=== PATIENT | female | born 1955 | race Caucasian/White ===

== ENCOUNTER 2023-10-16 12:52 | Outpatient (RCR) | payer MEDICARE, SELFPAY | END 2023-10-16 23:59 | disposition home or self-care (01) | LOC: ROT 12:52 | PROVIDERS: ATTENDING PHYSICIAN Physician Assistant | DX: R53.1 Weakness (principal); I69.328 Other speech and language deficits following cerebral infarction; Z73.6 Limitation of activities due to disability; I69.320 Aphasia following cerebral infarction; I69.390 Apraxia following cerebral infarction | CPT/HCPCS: 92507; 92523; 97110; 97140; 97167; 97530 ==

== ENCOUNTER 2023-11-12 07:22 | Outpatient (RCR) | payer MEDICARE, SELFPAY | END 2023-11-12 23:59 | disposition home or self-care (01) | LOC: ROT 07:22 | PROVIDERS: ATTENDING PHYSICIAN Physician Assistant | DX: I69.328 Other speech and language deficits following cerebral infarction (principal); I69.320 Aphasia following cerebral infarction; I69.390 Apraxia following cerebral infarction; R53.1 Weakness; Z73.6 Limitation of activities due to disability | CPT/HCPCS: 92507; 97110; 97112; 97140; 97530 ==

== ENCOUNTER 2023-11-26 12:47 | Outpatient (RCR) | payer MEDICARE, SELFPAY | END 2023-11-27 07:36 | disposition home or self-care (01) | LOC: ROT 12:47 | PROVIDERS: ATTENDING PHYSICIAN Physician Assistant | DX: I69.328 Other speech and language deficits following cerebral infarction (principal); R53.1 Weakness; Z73.6 Limitation of activities due to disability; I69.320 Aphasia following cerebral infarction; I69.390 Apraxia following cerebral infarction; M43.22 Fusion of spine, cervical region | CPT/HCPCS: 92507; 97014; 97110; 97112; 97140 ==

== ENCOUNTER → 2023-12-24 13:22 | Outpatient (REF) | payer MEDICARE, SELFPAY | LOC: RAD 13:22 | PROVIDERS: ATTENDING PHYSICIAN Specialist; FAMILY PHYSICIAN Physician Assistant | DX: N18.31 Chronic kidney disease, stage 3a (principal) | CPT/HCPCS: 76770 ==

== ENCOUNTER 2024-01-08 13:00 | Outpatient (RCR) | payer MEDICARE, SELFPAY | END 2024-01-08 23:59 | disposition home or self-care (01) | LOC: RPT 13:00 | PROVIDERS: ATTENDING PHYSICIAN Physical Medicine & Rehabilitation; FAMILY PHYSICIAN Physician Assistant | DX: M25.612 Stiffness of left shoulder, not elsewhere classified (principal); R29.3 Abnormal posture; M62.81 Muscle weakness (generalized); M25.512 Pain in left shoulder | CPT/HCPCS: 97010; 97110; 97140; 97162; 97530 ==

== ENCOUNTER 2024-02-15 12:55 | Outpatient (RCR) | payer MEDICARE, SELFPAY | END 2024-02-15 23:59 | disposition home or self-care (01) | LOC: RPT 12:55 | PROVIDERS: ATTENDING PHYSICIAN Physical Medicine & Rehabilitation; FAMILY PHYSICIAN Physician Assistant | DX: M25.612 Stiffness of left shoulder, not elsewhere classified (principal); M25.512 Pain in left shoulder; M62.81 Muscle weakness (generalized); R29.3 Abnormal posture | CPT/HCPCS: 97010; 97110; 97112; 97140; 97530 ==

== ENCOUNTER 2024-03-07 10:56 | Outpatient (RCR) | payer MEDICARE, SELFPAY | END 2024-03-07 14:08 | disposition home or self-care (01) | LOC: RPT 10:56 | PROVIDERS: ATTENDING PHYSICIAN Physical Medicine & Rehabilitation; FAMILY PHYSICIAN Physician Assistant | DX: M62.81 Muscle weakness (generalized) (principal); M25.512 Pain in left shoulder; R29.3 Abnormal posture | CPT/HCPCS: 97110; 97530 ==

== ENCOUNTER → 2024-06-27 18:20 | Outpatient (REF) | payer MEDICARE, SELFPAY | LOC: MRI 3T 18:20 | PROVIDERS: ATTENDING PHYSICIAN Psychiatry & Neurology Neurology; PRIMARYCARE PHYSICIAN Family Medicine | DX: I67.5 Moyamoya disease (principal) | CPT/HCPCS: 70553; A9575 ==

== ENCOUNTER → 2024-07-07 12:54 | Outpatient (REF) | payer MEDICARE, SELFPAY | LOC: PAVMRI 12:54 | PROVIDERS: ATTENDING PHYSICIAN Psychiatry & Neurology Neurology; FAMILY PHYSICIAN Family Medicine | DX: I67.5 Moyamoya disease (principal) | CPT/HCPCS: 70546; A9585 ==

== ENCOUNTER → 2024-07-09 14:27 | Outpatient (REF) | payer MEDICARE, SELFPAY | LOC: PAVMRI 14:27 | PROVIDERS: ATTENDING PHYSICIAN Psychiatry & Neurology Neurology; FAMILY PHYSICIAN Family Medicine | DX: I67.5 Moyamoya disease (principal) | CPT/HCPCS: 70549; A9585 ==

== ENCOUNTER → 2024-07-31 07:54 | Outpatient (REF) | payer MEDICARE, SELFPAY | LOC: WDC 07:54 | PROVIDERS: ATTENDING PHYSICIAN Physician Assistant | DX: Z12.31 Encounter for screening mammogram for malignant neoplasm of breast (principal) | CPT/HCPCS: 77063; 77067 ==

== ENCOUNTER 2024-08-29 13:31 | Inpatient (IN) | payer MEDICARE, SELFPAY ==
[2024-08-29] VITALS (11 sets, daily range): BP systolic 110–139; BP diastolic 46–64; BMI 26.5
--- NOTE | 2024-08-29 10:11 | ED.GENMED ---
History of Present Illness
General
Chief Complaint: Fainting/Passed Out
Source: patient, spouse and ambulance crew
Exam Limitations: none
Time Seen by Provider: 08/29/24 10:10
Nursing documentation reviewed up to this point in time: agreed with
History of Present Illness
History of Present Illness:
The patient is a 69-year-old female who arrives to the ED with paramedics on a prehospital stroke alert. According to her her , he got home at 9 AM this morning and found the patient sitting at the kitchen table. He noticed that she had
increased difficulty getting words out and was saying things that did not make sense. He reports that within minutes, she lost consciousness but he was able to catch her fall and lowered her down to the ground without her hurting herself. He
reports that he called 911 and she started to regain consciousness shortly after the paramedics arrived. At that time, she still seem to have increased difficulty with her speech. Paramedics report that shortly after they arrived, the patient had
another episode of losing consciousness. Patient does have a history of stroke in the past with expressive aphasia, however, the reports that it seems as though she has had slightly worsening symptoms than at her baseline. reports
he last saw her normal last night. He did not see her before 9 AM this morning. The patient denies headache, chest pain, shortness of breath and abdominal pain. Shortly after arrival, patient started to vomit in the ED. Patient denies vision
changes.
Past History
Past History
ED Past Medical History: CVA (right MCA stroke), HTN, IDDM, Hypothyroidism and Other (moyamoya, surgically remediated)
ED Past Surgical History: Other (neurosurgery craniotomy for moyamoya)
Social History
Tobacco: Non-smoker
Alcohol: None
Drug: None
Personal:
Living: with family
Employment: Employed
Family History
Family History: Other (reviewed and noncontributory)
Review of Systems
Review of Systems
Allergies reviewed?: Yes
Other source history: family
All Other Systems: ROS reviewed and negative except as documented in HPI and ROS
Constitutional: Reports no symptoms
EENT: Reports no symptoms
Respiratory: Reports cough
Cardiac: Reports syncope
ABD/GI: Reports nausea and vomiting
: Reports no symptoms
Musculoskeletal: Reports no symptoms
Skin: Reports no symptoms
Neurological: Reports no symptoms
Endocrine: Reports no symptoms
Hematologic/Lymphatic: Reports no symptoms
Psychiatric: Reports no symptoms
Phy Exam
Physical Exam
Physical Exam:
Physical Exam
General: On arrival, patient appears awake, alert, is vomiting and having some difficulty expressing words but is finally able to express some and they are understandable
Neck: supple. no meningeal signs. normal psoterior pharynx
Heart: Tachycardic
Lungs: no acute respiratory distress. clear bilaterally
Abdomen: Soft, nontender
Neuro: alert and orientedx3. Face appears symmetric. 5 out of 5 strength in all extremities. Extraocular muscles intact. Mild expressive aphasia.
Skin: no rash
Psychiatric: well kept. interactive and cooperative
Extremities: no edema. no calf tenderness. negative homans. good distal pulses
Course
Orders/Labs/Results
Orders:
Orders
08/29/24 10:10
Urinalysis Reflex To Culture Urgent
08/29/24 10:11
Electrocardiogram (*1) Urgent
Reason for Study: Syncope
CT HEAD STROKE ALERT W/o Cont Urgent
Comment:
Reason For Exam: aphasia
CT HEAD/NECK ANG STROKE ALERT Urgent
Comment:
Reason For Exam: aphasia
EKG- Treatment ONCE
08/29/24 10:33
Metoclopramide [Reglan] 10 mg IV NOW STA
08/29/24 10:39
Complete Blood Count/With Diff Urgent
Comprehensive Metabolic Panel Urgent
Lipase Urgent
Troponin I Urgent
08/29/24 10:48
COVID-19 Antigen Urgent
Source: Nasal Swab
Influenza A+B Rapid Molecular Urgent
EDITH Source: Nasal Swab
Specimen Description:
08/29/24 11:07
CXR Port [CR Chest Portable - 1 View] Urgent
Comment:
Reason For Exam: cough, vomiting, stroke
Reason Study Needs to be Portable: Patient Unstable
08/29/24 11:22
0.9% Sodium Chloride 1000 ml [Nss] 1,000 ml IV BOLUS
Abnormal Lab Results
08/29/24
10:39
RBC 3.32 L 10^6/uL
(4.20-5.40)
Hgb 10.8 L g/dL
(12.0-16.0)
Hct 31.7 L %
(37.0-47.0)
MCH 32.5 H pg
(27.0-31.0)
Absolute Monos (auto) 1.0 H 10^3/uL
(0.1-0.6)
Absolute Eos (auto) 0.8 H 10^3/uL
(0-0.7)
Monocytes % 10.0 H %
(1.7-9.3)
Eosinophils % 8.2 H %
(0-6)
Sodium 130 L mmol/L
(135-145)
Chloride 96 L mmol/L
(98-107)
BUN 29 H mg/dl
(7-17)
Creatinine 1.3 H mg/dL
(0.6-1.0)
Glucose 180 H mg/dl
(70-99)
08/29/24 10:39
08/29/24 10:39
Vital Signs
Initial and Last Documented VS:
Initial Vital Signs
Temp Pulse Resp BP Pulse Ox
97.9 F 103 22 122/58 98
08/29/24 10:26 08/29/24 10:26 08/29/24 10:26 08/29/24 10:26 08/29/24 10:26
Last Documented Vital Signs
Temp Pulse Resp BP Pulse Ox
98.8 F 109 20 121/55 97
08/29/24 11:16 08/29/24 11:00 08/29/24 11:00 08/29/24 11:00 08/29/24 11:00
MDM/Problems Addressed
Differential Diagnosis Includes:
Acute CVA causing expressive aphasia, intracranial hemorrhage, cardiac syncope, PE
MDM/Problems Addressed:
Patient arrives after 2 episodes of syncope and reported increased expressive aphasia, as well as vomiting
Chronic conditions affecting care:
CVA
Acute Exacerbation and/or Progression of Chronic Illness:
Patient may have acute exacerbation of chronic CVA symptoms
Acute Exacerbation and/or Progression of Chronic Illness: Other (CVA)
*Radiology
Radiology exam reviewed: preliminary read by ED provider (Chest x-ray read by me. No acute disease) and radiology read reviewed
*Pulse Oximetry
Patient hypoxic: no
*EKG
Interpreted by ED Provider?: Yes
Interpretation: abnormal
Comparison EKG: changes noted
Rate: tachycardiac
Rhythm: sinus
[place]: left axis deviation
Interval: normal interval
QRS Pattern: normal QRS
Ischemia: non-specific ST changes
*Fiscal Technician Interpretation
Rate: tachycardiac
Interpretation: abnormal
Rhythm: sinus
*Critical Care Note
Total Time (30-74mins, 75-104mins- exclusive of procedures): 35 min
comment:
35 minutes of critical care given to patient including reviewing her admission from 2021, speaking to neurology, to her , reviewing her CT with radiology, reviewing her lab work and EKG
Data Reviewed
Review of Other/Old Records Reveals: Discharge Summary (Hospitalist discharge summary reviewed from 2021 when patient was admitted for stroke, acute kidney damage and COVID-positive)
Source: patient and spouse
Update Note
Update Note:
There been no cardiac dysrhythmias in the ED. Patient's cause of syncope is unclear.
Patient is not a candidate for TNK given that her aphasia similar to her baseline and it was associated with syncopal episode.
ED Attending Note
-
Portions of this chart may have been created with voice recognition software.� Occasional wrong word or��sound alike� substitutions may have occurred due to the inherent limitations of voice recognition software.
Discharge Plan
Departure
Patient Disposition: Admit
Date of Disposition: 08/29/24
Time of Disposition: 11:25
Admit to: Telemetry
Presentation/result/management discussed w/ accepting MD/DO: Hospitalist
Patient with high blood pressure during this ER visit?: No
Condition: Fair
Discharge Problem:
Recurrent syncope, Acute vomiting, Acute on chronic expressive aphasia
Prescriptions:
No Action
cholecalciferol (vitamin D3) 1,000 UNITS tablet
1,000 units PO DAILY
amlodipine 10 mg tablet
10 mg PO DAILY
levothyroxine 112 mcg tablet
112 mcg PO DAILY@0700
olmesartan-hydrochlorothiazide 20-12.5 mg tablet
1 tab PO DAILY
Janumet 50-500 mg tablet
1 tab PO QPM
Trulicity 0.75 mg/0.5 mL pen injector
0.75 mg SC SA
atorvastatin 80 MG tablet
80 mg PO DAILY@2000
hydralazine 25 MG tablet
50 mg PO BID
aspirin 81 MG tablet,delayed release (DR/EC)
81 mg PO DAILY
Referrals:
Cruz Mariscal MD [Family Provider] -
Interventions
Interventions:
*Risk Screen - Suicide Last Done: 08/29/24 10:43
*Neglect/Abuse Screening Last Done: 08/29/24 10:43
ED- Fall Risk Assessment Last Done: 08/29/24 10:43
*ED COVID-19 Vaccine History Last Done: 08/29/24 10:16
ED- Cardiac Assessment Last Done: 08/29/24 10:27
ED- Neurological Assessment Last Done: 08/29/24 10:51
ED- Pulmonary Assessment Last Done: 08/29/24 10:27
ED Swallowing Screen Last Done: 08/29/24 11:41
Discharge Date and Time
Print Language: TRINIDADIAN
[2024-08-29] MEDS: REGLAN 10 MG IV (10:40)
[2024-08-29 10:50] LABS: % Basophils 1.5 % (0-2); % Eosinophils 8.2 % (0-6); % Immature Granulocytes 0.2 % (0-0.5); % Lymphocytes 27.1 % (20.5-51.1); Absolute Basophils 0.2 10^3/uL (0-0.2); Absolute Eosinophils 0.8 10^3/uL (0-0.7); Absolute Lymphocytes 2.7 10^3/uL (1.2-3.4); Absolute Neutrophils 5.2 10^3/uL (1.4-6.5); Hematocrit 31.7 % (37.0-47.0); Hemoglobin 10.8 g/dL (12.0-16.0); Mean Corp Hgb Conc. 34.1 g/dL (33.0-37.0); Mean Corpuscular Hgb 32.5 pg (27.0-31.0); Mean Corpuscular Volume 95.5 fL (81.0-99.0); Mean Platelet Volume 9.5 fL (7.4-10.4); Nucleated Red Blood Cells % 0 %; Platelet Count 365 10^3/uL (130-400); Red Blood Cell Count 3.32 10^6/uL (4.20-5.40); White Blood Cell Count 9.9 10^3/uL (4.8-10.8)
--- NOTE | 2024-08-29 11:00 | CON.NEURO ---
Consultation
Order
Date of Consultation: 08/29/24
Requesting Provider: Anu Solomon MD
Reason for Consult: Stroke alert
Called in: 9:50 AM
Neurology Consultation Note.
HPI: This is a 69-year-old right-handed woman who presented to [facility] on 08/29/2024 with recurrent syncope and emesis.
According to Mr. Yoana the patient was found her sitting at the table with the refrigerator door open at 9: AM after he returned home from recent hospitalization. Enma reportedly passed out in her spouse's arms and regained consciousness, appearing
clear-headed. She experienced another loss of awareness with associated worsening of aphasia leading to the evaluation. No reports of abnormal movements or stiffening.
ER VS: 122/58, 103, afebrile
EKG: sinus tachy, QTc Int : 405 ms
PDMP: Lorazepam 0.5 Mg 3 tabs filled in on 06/19/2024.
Labs: Glucose�180, corrected sodium�131, creatinine�1.3, normal WBCs.
CT head wo contrast-Likely old infarcts including left MCA territory, right frontal lobe, left basal ganglia and left internal capsule of the left internal capsule infarct may be late subacute..
CTA head/neck-pending
PMH: Moyamoya disease, L MCA stroke with residual R HP, dysarthria, apraxia and aphasia(February 2022), HTN, DLP, DM, hypothyroidism vit D deficiency
PSH: L STA-MCA bypass, cervical fusion/2, Baker's arthroplasty, tubal ligation
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
FH: father-stroke in his 80s
All: Penicillin, naproxen, clindamycin,
ROS: Positive for nausea, vomiting, change in vision, negative for vertigo, positive for chronic right-sided weakness and aphasia.
General: Well developed. In moderate distress due to emesis
Cardio: Regular rate and rhythm . Extremities are without cyanosis or edema.
Neuro:
Mental Status: Alert, oriented to self, location. Follows simple requests consistently. Impaired attention increased processing time. Mild to moderate expressive aphasia.
Cranial Nerves: Pupils are equally round and reactive to light. EOMs full. Visual alejo full to confrontation. No ptosis. No nystagmus. Right facial weakness(chronic). Normal hearing AU. The palate elevated well. SCMs and traps 5/5. Tongue
midline. Mild dysarthria (chronic).
Motor: No pronator or leg drift.
Sensory: Limited exam due to impaired attention
Coordination: No dysmetria.
Gait: deferred
Assessment and Plan:
I. Recurrent syncope.
II. Moyamoya disease
III. Chronic left MCA infarct.
IV. Emesis. No evidence of dysmetria, nystagmus or new cranial palsies.
-Continue Telemetry monitoring.
-N.p.o.
-Cardiology consult
-History glycemic control
-Routine EEG
-Follow-up CTA results
-UA, urine culture, TFTs, urine tox, CK, alcohol level
-Brain MRI without unique if no clinical improvement
-Continue aspirin 81 mg once a day
-DVT prophylaxis.
I personally reviewed all radiology and labs along with past medical records pertinent to current medical problems. Total time spent in patient care is 60 minutes.
Thank you for allowing us to participate in the care of this patient. We will continue to follow. Please do not hesitate to contact us with any questions or concerns.
Subjective/Objective
Subjective Data
Date of Service: August 29, 2024
Objective Data
Vital Signs
Temp Pulse Resp BP Pulse Ox
36.6 C 129 12 122/58 100
08/29/24 10:26 08/29/24 10:38 08/29/24 10:38 08/29/24 10:26 08/29/24 10:38
Lab Results
08/29/24 10:39
Patient Allergies
adhesive Allergy (Verified 02/27/22 08:25)
Unknown
clindamycin Allergy (Verified 02/27/22 20:42)
diarrhea
latex Allergy (Verified 02/27/22 08:25)
Unknown
naproxen Allergy (Verified 02/27/22 20:42)
facial swelling
Penicillins Allergy (Verified 02/27/22 08:25)
Anaphylaxis
Medications
-
Home Medications
�Medication �Instructions �Recorded
cholecalciferol (vitamin D3) 25 1,000 units PO DAILY Supplement 02/27/22
mcg (1,000 unit) tablet
glipizide 2.5 mg tablet, extended 2.5 mg PO DAILY Diabetes 02/27/22
release 24 hr
levothyroxine 150 mcg tablet 150 mcg PO DAILY AT 0700 Thyroid 02/27/22
olmesartan 20 1 ea PO DAILY Blood pressure 02/27/22
mg-hydrochlorothiazide 12.5 mg
tablet (Benicar HCT)
amlodipine 5 mg tablet 10 mg (2 x 5 mg) PO DAILY 03/06/22
aspirin 81 mg tablet,delayed 81 mg PO DAILY 03/06/22
release
atorvastatin 80 mg tablet 80 mg PO DAILY@2000 03/06/22
clopidogrel 75 mg tablet 75 mg PO DAILY 03/06/22
hydralazine 25 mg tablet 50 mg (2 x 25 mg) PO Q8 03/06/22
metformin 500 mg tablet,extended 1,000 mg (2 x 500 mg) PO DAILY 03/06/22
release 24 hr
sitagliptin phosphate 50 mg tablet 100 mg (2 x 50 mg) PO DAILY 03/06/22
(Januvia)
Vital Signs and Labs
-
Vital Signs and Labs:
Vital Signs
Temp Pulse Resp BP Pulse Ox
37.1 C 109 20 121/55 97
08/29/24 11:16 08/29/24 11:00 08/29/24 11:00 08/29/24 11:00 08/29/24 11:00
Lab Results
08/29/24 10:39
08/29/24 10:39
Sodium 130 mmol/L (135-145) L 08/29/24 10:39
Potassium 4.7 mmol/L (3.5-5.1) 08/29/24 10:39
BUN 29 mg/dl (7-17) H 08/29/24 10:39
Glucose 180 mg/dl (70-99) H 08/29/24 10:39
Calcium 9.7 mg/dl (8.4-10.2) 08/29/24 10:39
Home Medications
-
Home Medications
cholecalciferol (vitamin D3) 25 mcg (1,000 unit) tablet 1,000 units PO DAILY Supplement 02/27/22
amlodipine 10 mg tablet 10 mg PO DAILY Blood Pressure 08/29/24
aspirin 81 mg tablet,delayed release 81 mg PO DAILY Blood Clot Prevention/Tx 08/29/24
atorvastatin 80 mg tablet 80 mg PO DAILY@2000 High Cholesterol 08/29/24
dulaglutide 0.75 mg/0.5 mL subcutaneous pen injector (Trulicity) 0.75 mg SC SA Diabetes 08/29/24
hydralazine 25 mg tablet 50 mg PO BID Blood Pressure 08/29/24
levothyroxine 112 mcg tablet 112 mcg PO DAILY@0700 Thyroid 08/29/24
olmesartan 20 mg-hydrochlorothiazide 12.5 mg tablet 1 tab PO DAILY Blood Pressure 08/29/24
sitagliptin phosphate 50 mg-metformin 500 mg tablet (Janumet) 1 tab PO QPM Diabetes 08/29/24
[2024-08-29 11:07] LABS: ALT (SGPT) 18 U/L (0-35); AST (SGOT) 22 U/L (14-36); Albumin 4.3 g/dl (3.5-5.0); Alkaline Phosphatase 88 U/L (38-126); Blood Urea Nitrogen 29 mg/dl (7-17); Calcium 9.7 mg/dl (8.4-10.2); Carbon Dioxide 23 mmol/L (22-30); Chloride 96 mmol/L (98-107); Glucose 180 mg/dl (70-99); Lipase 268 U/L (23-300); Potassium 4.7 mmol/L (3.5-5.1); Sodium 130 mmol/L (135-145); Total Bilirubin 0.4 mg/dl (0.2-1.3); Total Protein 6.5 g/dl (6.3-8.2); eGFR 43.96
[2024-08-29 11:12] LABS: Troponin I < 0.012 ng/ml
--- NOTE | 2024-08-29 11:14 | EDRN ---
hx of residual expressive aphasia
[2024-08-29 11:20] LABS: COVID-19 Antigen Negative (Negative)
[2024-08-29] MEDS: NSS 1000 IV (11:25)
[2024-08-29 12:31] LABS: Urine Albumin Negative (Neg - Trace); Urine Bilirubin Negative (Negative); Urine Character Clear (Clear); Urine Color Yellow; Urine Glucose Negative (Negative); Urine Ketone Negative (Negative); Urine Leukocyte Negative (Negative); Urine Nitrite Negative (Negative); Urine Occult Blood Negative (Negative); Urine Urobilinogen Negative (Neg - 1+)
--- NOTE | 2024-08-29 13:06 | HPS.HSE ---
Family Physician
-
Family Physician: Cruz Mariscal
Chief Complaint
-
Syncope
History of Present Illness
Patient is a 69-year-old female with history of prior CVA, hypertension, diabetes who presents to the emergency room by ambulance after 2 syncopal episodes. Patient syncopized first time at home describing initial lightheadedness and then passing
out for short period of time. Second episode happened in the ambulance that patient could not recall. While in the emergency room patient presents hemodynamically stable. She did had a. Of worsening of aphasia (she does have a chronic expressive
motor aphasia since prior left MCA infarct)
Patient was seen in consultation by neurology and given a rapid neurologic improvement at the time at the baseline status was found not to be candidate for thrombolysis.
Patient herself suspect hypoglycemia glucose above presentation
Additional workup in the emergency room consistent with CT of the head which showed old left MCA infarct, CTA showed known moyamoya abnormalities with no large vascular occlusion.
Relevant laboratory workup were consistent with chronic anemia with hemoglobin of 10.8, normal white count. Sodium 130 creatinine 1.3
Medical History
Past Medical History
Past Medical History: Reports CVA, HTN and NIDDM
Past Surgical History: Reports None
Social History
Tobacco: Non-smoker
Alcohol: None
Drug: None
Personal:
Living: With Family
Family History
Family History: Not pertinent
Allergies / Home Medications
Allergies reflects when Allergies were last updated in [employer].
Home Medications with original date entered in [employer]
Allergy/Medication List:
Allergies
Allergy/AdvReac Type Severity Reaction Status Date / Time
adhesive Allergy Unknown Verified 02/27/22 08:25
clindamycin Allergy diarrhea Verified 02/27/22 20:42
latex Allergy Unknown Verified 02/27/22 08:25
naproxen Allergy facial Verified 02/27/22 20:42
swelling
Penicillins Allergy Anaphylaxis Verified 02/27/22 08:25
Home Medications
cholecalciferol (vitamin D3) 25 mcg (1,000 unit) tablet 1,000 units PO DAILY Supplement 02/27/22
amlodipine 10 mg tablet 10 mg PO DAILY Blood Pressure 08/29/24
aspirin 81 mg tablet,delayed release 81 mg PO DAILY Blood Clot Prevention/Tx 08/29/24
atorvastatin 80 mg tablet 80 mg PO DAILY@2000 High Cholesterol 08/29/24
dulaglutide 0.75 mg/0.5 mL subcutaneous pen injector (Trulicity) 0.75 mg SC SA Diabetes 08/29/24
hydralazine 25 mg tablet 50 mg PO BID Blood Pressure 08/29/24
levothyroxine 112 mcg tablet 112 mcg PO DAILY@0700 Thyroid 08/29/24
olmesartan 20 mg-hydrochlorothiazide 12.5 mg tablet 1 tab PO DAILY Blood Pressure 08/29/24
sitagliptin phosphate 50 mg-metformin 500 mg tablet (Janumet) 1 tab PO QPM Diabetes 08/29/24
Review of Systems
-
A 12 point ROS was completed and negative except as noted: Yes
Physical Exam
Vital Signs
Vital Signs
Temp Pulse Resp BP Pulse Ox
98.8 F 122 18 112/59 96
08/29/24 11:16 08/29/24 12:17 08/29/24 12:17 08/29/24 12:00 08/29/24 12:00
Physical Exam
General: Well Developed, Well Nourished and No Apparent Distress
HEENT: NormoCephalic, Moist mucous membranes and Atraumatic
Respiratory: Clear
Cardiac: S1/S2 and Regular Rhythm; No Murmur or Rub
GI: Soft, Non Tender, Non Distended and Normal Bowel Sounds; No Organomegaly
Rectal: Deferred by Provider
Musculoskeletal: No Clubbing, No Cyanosis and No Edema
Skin: No Rash
Neuro: Nonfocal/grossly intact
Laboratory Results
-
08/29/24 10:39
08/29/24 10:39
Laboratory Results
Total Bilirubin 0.4 mg/dl (0.2-1.3) 08/29/24 10:39
AST 22 U/L (14-36) 08/29/24 10:39
ALT 18 U/L (0-35) 08/29/24 10:39
Alkaline Phosphatase 88 U/L (38-126) 08/29/24 10:39
Troponin I < 0.012 ng/ml 08/29/24 10:39
Lipase 268 U/L (23-300) 08/29/24 10:39
Impression/Plan
-
Impression
69 years old female with history of hypertension, diabetes, prior CVA presents with syncopal episode at home and in the ambulance.
Syncope
Sinus tachycardia
Acute kidney injury
Hyponatremia sodium 130
Other conditions:
Prior left MCA CVA with chronic aphasia.
Moyamoya disease.
Essential hypertension.
Hypothyroidism
PLAN:
Syncope.
Less likely acute CVA. Prior history of left MCA infarct, moyamoya, chronic aphasia.
Other differential could be hypoglycemia (which patient suspected) although her blood glucose on arrival 180, cardiogenic (since last episode was without prodrome), circulatory (persistent tachycardia, not hypoxic) will consider to rule out
pulmonary embolism.
Neurology input appreciated
Continue neurologic monitoring.
Cardiac monitoring.
Echocardiogram.
MRI of the brain.
CT chest PE study
Orthostatic vitals.
Monitor for recurrent hypoglycemia while off glucose lowering medications
Acute kidney injury suspect secondary to dehydration.
Mild hyponatremia
Monitor for retention
Hold HCTZ, olmesartan, hydralazine
Avoid hypotension.
Follow BMP
Type 2 diabetes.
Update hemoglobin A1c.
Monitor for hypoglycemia.
Hold Trulicity, Janumet.
Basal bolus protocol with serial Accu-Cheks.
Full code
DVT prophylaxis Lovenox
--- NOTE | 2024-08-29 13:22 | EDRN ---
IVT assessed the IV that was in place by EMS and states it is a power injectable device
--- NOTE | 2024-08-29 14:58 | PTOTSP ---
Dysphagia Evaluation
Oral/pharyngeal swallowing WFL. No further dysphagia therapy warranted at this time.
Will formally evaluate speech/language/cognition pending results of MRI of Brain. Patient/spouse reported patient's speech/language as baseline at this time. Patient known to department from hx of outpatient speech therapy (with moderate verbal
apraxia and mild expressive aphasia at time of discharge 12/2023).
Recommend:
1. Regular, Thin Liquids
2. Medications: as best tolerated
3. General aspiration precautions
4. Speech/language/cognitive evaluation as appropriate.
--- NOTE | 2024-08-29 15:50 | CON.CAR ---
Addendum entered and electronically signed by Naeem Muñoz MD 08/29/24 18:01:
I saw and examined the patient.
The WORKERS COMPENSATION DEFENSE ATTORNEY's note was reviewed and I agree with the note.
Comment: 69-year-old female with a past medical history of moyamoya status post revascularization, CVA, diabetes type 2, hypertension, CKD 3A who presents for multiple syncopal episodes. She felt lightheaded prior to both events, no chest pain or
palpitations. She was noted to have low blood pressures. Additionally nauseated when she arrived to the ED. Currently she is feeling much better after IV fluids. 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
weight while taking Trulicity. Despite losing 55 pounds, none of her blood pressure medications have been adjusted. On exam she is alert and oriented x 3 in no apparent distress with a regular rate and rhythm with normal S1-S2 no murmur rubs
gallops were appreciated.lungs that are clear to auscultation bilaterally. EKG shows sinus tachycardia with low voltage, nonspecific ST-T wave abnormality but there is a lot of artifact. She had an echocardiogram today that was normal. Labs are
consistent for mild FRAN with low sodium. Troponin is negative. Overall, I suspect the source of her syncope is orthostasis. Labs are consistent with volume depletion and she recently lost 55 pounds without any adjustment of her blood pressure
medications. I would recommend considering discontinuing her hydrochlorothiazide and hydralazine and resuming olmesartan when needed, given her history of diabetes. History is not consistent with a cardiac etiology. She is on telemetry and that
can be continually monitored prior to discharge. Overall, no acute cardiac issues. I will see again at your request. She can follow-up with her typical primary care team and neurology..
CONCLUSIONS
Normal left ventricular size, wall thickness and systolic function. No regional
wall motion abnormalities are seen. LV ejection fraction is 55-60% by
volumetric assessment. Diastolic function indeterminate.
Normal right ventricular size and function.
Normal atria.
No significant valve abnormalities.
Top normal pulmonary pressure. PASP estimated at 40 mmHg.
Original Note:
Consultation
Consultation Request
Date/Time Consultation Requested: 08/29/24 1311
Date/Time Consultation Performed: 08/29/24 1500
Requesting Provider: Dr. Flores
Performing Provider: Gali BOSWELL for Dr. Muñoz
Reason for Consultation: Syncope
Medical History
-
Chief Complaint: syncope
History of Present Illness:
69 y/o female with hx CVA, DM2, HTN, CKD3A, Mcmillan Deyanira (with hx revascularization) who is here for evaluation of syncope x 2. Briefly, this AM around 9:00 she was doing laundry and began to feel light-headed. She thought her blood sugar was low so
went to drink coffee and OJ then went to sit down. Her came home and asked if she was okay and she was less responsive, then she passed out into his arms. He brought her to the ground. She came to and was feeling better. EMS came and checked
BP and sugar while she was on the floor and both okay. She was feeling better, but then they sat her in a chair and rechecked BP and it was 90's/50's. She passed out again while sitting. She is here in ER and is feeling fine. She was nauseated on
arrival. She has been given IVF. 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 She has seen Dr. Joe of cardiology in the past (for pre-op risk assessment), but has never been diagnosed with a cardiac condition.
Past Medical History
Past Medical History: CVA, HTN, NIDDM and Other (CKD)
Social History
Tobacco: Non-Smoker
Personal:
Living: With Family
Family History
Family History: CAD (dad bypass age 55) and Other (sister pacemaker, brother valve issue)
Allergies / Home Medications
Allergy/AdvReac Type Severity Reaction Status Date / Time
adhesive Allergy Unknown Verified 02/27/22 08:25
clindamycin Allergy diarrhea Verified 02/27/22 20:42
latex Allergy Unknown Verified 02/27/22 08:25
naproxen Allergy facial Verified 02/27/22 20:42
swelling
Penicillins Allergy Anaphylaxis Verified 02/27/22 08:25
�Medication �Instructions �Recorded �Confirmed �Type
cholecalciferol (vitamin D3) 25 1,000 units PO DAILY Supplement 02/27/22 08/29/24 History
mcg (1,000 unit) tablet
amlodipine 10 mg tablet 10 mg PO DAILY Blood Pressure 08/29/24 08/29/24 History
aspirin 81 mg tablet,delayed 81 mg PO DAILY Blood Clot 08/29/24 08/29/24 History
release Prevention/Tx
atorvastatin 80 mg tablet 80 mg PO DAILY@2000 High 08/29/24 08/29/24 History
Cholesterol
dulaglutide 0.75 mg/0.5 mL 0.75 mg SC SA Diabetes 08/29/24 08/29/24 History
subcutaneous pen injector
(Trulicity)
hydralazine 25 mg tablet 50 mg PO BID Blood Pressure 08/29/24 08/29/24 History
levothyroxine 112 mcg tablet 112 mcg PO DAILY@0700 Thyroid 08/29/24 08/29/24 History
olmesartan 20 1 tab PO DAILY Blood Pressure 08/29/24 08/29/24 History
mg-hydrochlorothiazide 12.5 mg
tablet
sitagliptin phosphate 50 1 tab PO QPM Diabetes 08/29/24 08/29/24 History
mg-metformin 500 mg tablet
(Janumet)
Review of Systems
-
History Source: Patient
All other systems: Negative unless noted
Constitutional: Weight Loss (on Trulicity)
Cardiac: Syncope
Physical Exam
Vital Signs
Temp Pulse Resp BP Pulse Ox
98.8 F 100 16 111/46 96
08/29/24 11:16 08/29/24 13:00 08/29/24 13:00 08/29/24 13:00 08/29/24 12:00
Lab Results
08/29/24 10:39
08/29/24 10:39
Troponin I < 0.012 ng/ml 08/29/24 10:39
Physical Exam
General: Well Developed, Well Nourished and No Apparent Distress
HEENT: Normocephalic and Anicteric
Respiratory: Clear and Non Labored Respirations
Cardiac: Regular Rhythm
Musculoskeletal: No Edema
Skin: Warm and Dry
Neuro: AO x 3
Psych: Calm
Impression / Plan
-
Syncope:
-it sounds like it could have been orthostatic. She has received IV fluids. Check orthos. May need less BP meds.
-follow telemetry and check echo
Hx CVA:
-neuro on the case
-on ASA, statin
Mcmillan Mcmillan disease:
-s/p revascularizations per
-neuro on case
HTN:
-patient on multiple medicines and has lost significant weight on trulicity- may need less meds
-monitor BPs including orthos
Data Reviewed
-
EKG: Tracing Personally Visualized and interpreted (ST at 116 BPM)
Radiology: Report Reviewed by me (CXR: No acute cardiopulmonary process.)
Medical Tests (Nuc Med, Echo etc): Report Reviewed by me (Echo 02/28/22: Normal left ventricular size, wall thickness and systolic function. No regional wall motion abnormalities are seen. LV ejection fraction is 55-60%. No significant valvular
disease. )
Labs: Labs Reviewed by me
[2024-08-29 16:27] LABS: Glucose - Point of Care 153 mg/dl (70-99)
--- NOTE | 2024-08-29 16:38 | PTCARENOTE ---
Patient admitted from ER into room 405-01. Oriented to room, use of call valdes, and TV and bed controls. Patient verbalizes understanding of teaching. Reviewed plan of care with patient. Vital signs stable. Patient with bed alarm on and reviewed fall
precautions with patient. Patient verbalizes understanding. Echo being completed at bedside at this time.
[2024-08-29] MEDS: NOVOLOG FLEXPEN-LOW RESISTANCE 1 UNITS SC (16:49)
[2024-08-29] MEDS: ASPIR LOW (ENTERIC COATED) PO ×2 (16:56→17:10)
[2024-08-29] MEDS: NORVASC 10 MG PO (16:56)
[2024-08-29] MEDS: LOVENOX 40 MG SC (16:57)
--- NOTE | 2024-08-29 17:15 | CARDSERVLU ---
Echocardiogram with [facility] completed after protocol screening completed. Allergies verified.
Patent IV site: ___LAC__
IV site flushed with 0.9% NaCl pre and post administration.
Diluted bolus method utilized to enhance visualization of ventricular mathews.
Total volume given: ___2_ mL
Patient tolerated all procedures well without complications.
--- NOTE | 2024-08-29 19:23 | PTCARENOTE ---
Patient with NIH of 3 - right arm weakness, slight expressive aphasia, limb ataxia right arm - all residual from previous CVA. CT brain negative for acute changes. For repeat CT and MRI.
[2024-08-29] MEDS: LIPITOR 80 MG PO (21:11)
[2024-08-29] MEDS: TYLENOL 650 MG PO (21:15)
[2024-08-29 22:17] LABS: Glucose - Point of Care 133 mg/dl (70-99)
[2024-08-30 03:47] VITALS: BP 125/61
[2024-08-30] MEDS: SYNTHROID 112 MCG PO (05:16)
[2024-08-30 06:55] LABS: % Basophils 1.5 % (0-2); % Eosinophils 5.5 % (0-6); % Immature Granulocytes 0.3 % (0-0.5); % Lymphocytes 20.5 % (20.5-51.1); % Monocytes 9.8 % (1.7-9.3); % Neutrophils 62.4 % (42.2-75.2); Absolute Basophils 0.1 10^3/uL (0-0.2); Absolute Eosinophils 0.4 10^3/uL (0-0.7); Absolute Lymphocytes 1.4 10^3/uL (1.2-3.4); Absolute Monocytes 0.7 10^3/uL (0.1-0.6); Absolute Neutrophils 4.2 10^3/uL (1.4-6.5); Hematocrit 30.9 % (37.0-47.0); Hemoglobin 10.7 g/dL (12.0-16.0); Mean Corp Hgb Conc. 34.6 g/dL (33.0-37.0); Mean Corpuscular Hgb 32.8 pg (27.0-31.0); Mean Corpuscular Volume 94.8 fL (81.0-99.0); Nucleated Red Blood Cells % 0 %; Platelet Count 323 10^3/uL (130-400); Red Blood Cell Count 3.26 10^6/uL (4.20-5.40); Red Cell Dist. Width 12.2 % (11.5-14.5); White Blood Cell Count 6.7 10^3/uL (4.8-10.8)
[2024-08-30 07:16] LABS: Glucose - Point of Care 99 mg/dl (70-99)
[2024-08-30 07:23] LABS: Blood Urea Nitrogen 18 mg/dl (7-17); Carbon Dioxide 25 mmol/L (22-30); Chloride 98 mmol/L (98-107); Estimated Creatinine Clearance 39 ml/min; Glucose 99 mg/dl (70-99); HDL Cholesterol 90 mg/dl; LDL Cholesterol, Calculated 31 mg/dl; Potassium 4.5 mmol/L (3.5-5.1); Sodium 133 mmol/L (135-145); Total Cholesterol 134 mg/dl (50-199); Triglyceride 65 mg/dl (10-149); Very Low Density Lipoprotein 13 mg/dl (0-30); eGFR 53.72
[2024-08-30] MEDS: TYLENOL 650 MG PO (07:38)
[2024-08-30 07:40] VITALS: BP 118/53
[2024-08-30] MEDS: NOVOLOG FLEXPEN-LOW RESISTANCE SC ×2 (07:42→11:54)
[2024-08-30] MEDS: NORVASC 10 MG PO (08:08)
[2024-08-30] MEDS: ASPIR LOW (ENTERIC COATED) 81 MG PO (08:08)
[2024-08-30] MEDS: VITAMIN D3 (cholecalciferol) 25 MCG PO (08:08)
[2024-08-30 08:47] LABS: Glycohemoglobin (HgbA1c) 6.1 % (4.0-5.6)
[2024-08-30 09:00] VITALS: BP 118/53; BP 134/62; BP 142/63; PULSE 89; PULSE 97; PULSE 99
--- NOTE | 2024-08-30 11:02 | W.PN.NEURO.1 ---
Today's Communication / Plan
-
.
Subjective/Objective
Subjective Data
Date of Service: August 30, 2024
Neurology follow-up note.
Ms. Lees reports no complaints. She denies having any new motor, visual, speech or sensory symptoms. No reports of headaches, vertigo or recurrent emesis.
The patient has been normotensive and afebrile.
Brain MRI is pending.
LDL 33, Na 133, ua-normal
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
PSH: L STA-MCA bypass, cervical fusion/2, Baker's arthroplasty, tubal ligation
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
FH: father-stroke in his 80s
All: Penicillin, naproxen, clindamycin,
ROS: Positive for nausea, vomiting, change in vision, negative for vertigo, positive for chronic right-sided weakness and aphasia.
General: Well developed. In moderate distress due to emesis
Cardio: Regular rate and rhythm . Extremities are without cyanosis or edema.
Neuro:
Mental Status: Alert, oriented to self, month, year. Date was incorrect but close (13 close). follows simple requests consistently. Impaired attention increased processing time. Mild to moderate expressive aphasia.
Cranial Nerves: Pupils are equally round and reactive to light. EOMs full. R upper quadrantanopia. No ptosis. No nystagmus. Right facial weakness(chronic). Normal hearing AU. The palate elevated well. SCMs and traps 5/5. Tongue midline.
Mild dysarthria (chronic).
Motor: No pronator or leg drift.
Coordination: No dysmetria.
Gait: deferred
Assessment and Plan:
I. Recurrent syncope.
II. Moyamoya disease
III. Chronic left MCA infarct.
IV. Normocytic anemia
V. Mild hyponatremia
-Tele
-Brain MRI without unique
-Continue aspirin 81 mg once a day
-Cardiology consult
-DVT prophylaxis.
I personally reviewed all radiology and labs along with past medical records pertinent to current medical problems. Total time spent in patient care is 36 minutes.
Thank you for allowing us to participate in the care of this patient. We will continue to follow. Please do not hesitate to contact us with any questions or concerns.
Objective Data
Vital Signs
Temp Pulse Resp BP Pulse Ox
36.8 C 74 16 118/53 96
08/30/24 07:40 08/30/24 08:08 08/30/24 07:40 08/30/24 08:08 08/30/24 08:10
Lab Results
08/30/24 06:19
08/30/24 06:19
Sodium 133 mmol/L (135-145) L 08/30/24 06:19
Potassium 4.5 mmol/L (3.5-5.1) 08/30/24 06:19
BUN 18 mg/dl (7-17) H 08/30/24 06:19
Glucose 99 mg/dl (70-99) 08/30/24 06:19
Calcium 10.0 mg/dl (8.4-10.2) 08/30/24 06:19
LDL Cholesterol, Calc 31 mg/dl 08/30/24 06:19
Patient Allergies
adhesive Allergy (Verified 02/27/22 08:25)
Unknown
clindamycin Allergy (Verified 02/27/22 20:42)
diarrhea
latex Allergy (Verified 02/27/22 08:25)
Unknown
naproxen Allergy (Verified 02/27/22 20:42)
facial swelling
Penicillins Allergy (Verified 02/27/22 08:25)
Anaphylaxis
Vital Signs and Labs
-
Vital Signs and Labs:
Vital Signs
Temp Pulse Resp BP Pulse Ox
36.8 C 74 16 118/53 96
08/30/24 07:40 08/30/24 08:08 08/30/24 07:40 08/30/24 08:08 08/30/24 08:10
Lab Results
08/30/24 06:19
08/30/24 06:19
Sodium 133 mmol/L (135-145) L 08/30/24 06:19
Potassium 4.5 mmol/L (3.5-5.1) 08/30/24 06:19
BUN 18 mg/dl (7-17) H 08/30/24 06:19
Glucose 99 mg/dl (70-99) 08/30/24 06:19
Calcium 10.0 mg/dl (8.4-10.2) 08/30/24 06:19
LDL Cholesterol, Calc 31 mg/dl 08/30/24 06:19
Medications
-
Medications:
Generic Name Dose Route Start Last Admin
Trade Name Freq PRN Reason Stop Dose Admin
Acetaminophen 650 mg 08/29/24 16:03
Acetaminophen 650 Mg Rectal Suppository RECTAL 09/26/24 16:02
Q4HPRN PRN
[place], mild pain, or temp >100.4F
Acetaminophen 650 mg 08/29/24 16:03 08/30/24 07:38
Acetaminophen 325 Mg Tablet PO 09/26/24 16:02 650 mg
Q4HPRN PRN Administration
[place], mild pain, or temp >100.4F
Amlodipine Besylate 10 mg 08/29/24 16:03 08/30/24 08:08
Amlodipine 10 Mg Tablet PO 09/26/24 16:02 10 mg
DAILY BETTY Administration
Aspirin 81 mg 08/29/24 16:03 08/30/24 08:08
Aspirin 81 Mg (Enteric Coated) Tablet PO 09/26/24 16:02 81 mg
DAILY BETTY Administration
Atorvastatin Calcium 80 mg 08/29/24 20:00 08/29/24 21:11
Atorvastatin (Lipitor) 80 Mg Tablet PO 09/26/24 19:59 80 mg
DAILY@2000 BETTY Administration
Cholecalciferol 25 mcg 08/30/24 08:00 08/30/24 08:08
Cholecalciferol (Vitamin D3) 25 Mcg Tablet (1,000 Units) PO 09/27/24 07:59 25 mcg
DAILY BETTY Administration
Dextrose 12.5 grams 08/29/24 16:03
Dextrose 50% (0.5 Grams/Ml) 50 Ml Syringe IV 09/26/24 16:02
[id number] PRN
hypoglycemia
Protocol
Enoxaparin Sodium 40 mg 08/29/24 18:00 08/29/24 16:57
Enoxaparin Sodium 40 Mg/0.4 Ml Syringe SC 09/26/24 17:59 40 mg
QPM BETTY Administration
Glucagon 1 mg 08/29/24 16:03
Glucagon 1 Mg Vial IM 09/26/24 16:02
PRN PRN
hypoglycemia
Protocol
Insulin Aspart 0 units 08/29/24 16:30 08/30/24 07:42
Insulin Aspart Low Resistance 300 Units/3 Ml Pen.Injctr SC 09/26/24 16:29 Not Given
AC BETTY
Protocol
Levothyroxine Sodium 112 mcg 08/30/24 06:00 08/30/24 05:16
Levothyroxine 112 Mcg Tablet PO 09/27/24 05:59 112 mcg
DAILY@0600 BETTY Administration
Sodium Chloride 0 flush 08/29/24 17:00
Sodium Chloride 0.9% (Flush) Syringe IV 09/26/24 16:59
PER PROTOCOL BETTY
Home Medications
-
Home Medications
cholecalciferol (vitamin D3) 25 mcg (1,000 unit) tablet 1,000 units PO DAILY Supplement 06/13/22
amlodipine 10 mg tablet 10 mg PO DAILY Blood Pressure 08/29/24
aspirin 81 mg tablet,delayed release 81 mg PO DAILY Blood Clot Prevention/Tx 08/29/24
atorvastatin 80 mg tablet 80 mg PO DAILY@1999 High Cholesterol 08/29/24
dulaglutide 0.75 mg/0.5 mL subcutaneous pen injector (Trulicity) 0.75 mg SC SA Diabetes 08/29/24
hydralazine 25 mg tablet 50 mg PO BID Blood Pressure 08/29/24
levothyroxine 112 mcg tablet 112 mcg PO DAILY@0700 Thyroid 08/29/24
olmesartan 20 mg-hydrochlorothiazide 12.5 mg tablet 1 tab PO DAILY Blood Pressure 08/29/24
sitagliptin phosphate 50 mg-metformin 500 mg tablet ([place]) 1 tab PO QPM Diabetes 08/29/24
[2024-08-30 11:05] VITALS: BP 163/74; PULSE 98; O2SAT 100
[2024-08-30 11:35] VITALS: BP 139/67
[2024-08-30 11:53] LABS: Glucose - Point of Care 136 mg/dl (70-99)
--- NOTE | 2024-08-30 12:21 | W.DS.TRANS ---
DC Summary - [employer]
-
Discharge Instructions:
Discharge Diagnosis/Procedures Syncope
Diet Diabetic, Carb Controlled
Instructions:
Stand-Alone Forms:
Changes to Home Medications: Yes
Discharge Medications:
DC Medications w/original date entered in [employer]
cholecalciferol (vitamin D3) 25 mcg (1,000 unit) tablet 1,000 units PO DAILY Supplement 02/27/22
aspirin 81 mg tablet,delayed release 81 mg PO DAILY Blood Clot Prevention/Tx 08/29/24
atorvastatin 80 mg tablet 80 mg PO DAILY@2000 High Cholesterol 08/29/24
dulaglutide 0.75 mg/0.5 mL subcutaneous pen injector (Trulicity) 0.75 mg SC SA Diabetes 08/29/24
levothyroxine 112 mcg tablet 112 mcg PO DAILY@0700 Thyroid 08/29/24
sitagliptin phosphate 50 mg-metformin 500 mg tablet (Maxxumet) 1 tab PO QPM Diabetes 08/29/24
olmesartan 20 mg tablet 20 mg PO DAILY #30 tabs 08/30/24
Home Medication Changes
HCTZ, Hydralazine, Amlodipine stopped
Pending Results: No
--- NOTE | 2024-08-30 13:56 | CM ---
Pt seen bedside. Initial assessment completed.
Pt lives w/ spouse in a 2STH-2 steps to enter
Pt is independent, denies DME use for ambulating or daily functioning
Pt states she was at [facility] rehab in [place] 2 years ago for stroke
Pt states she has had [facility] in the past and enjoyed the services
Address, point of contact and insurance verified.
PCP: Dr. Cruz Mariscal
[facility]: [facility]
D/c today. Spouse to transport home
Plan: Home; no needs
== END 2024-08-30 14:12 | disposition home or self-care (01) | DRG 683 ==
LOC: 4 EAST ACU 13:31
PROVIDERS: ADMITTING PHYSICIAN Internal Medicine; CONSULT PHYSICIAN Internal Medicine Cardiovascular Disease; CONSULT PHYSICIAN Psychiatry & Neurology Neurology; EMERGENCY PHYSICIAN Emergency Medicine; FAMILY PHYSICIAN Family Medicine
DX: N17.9 Acute kidney failure, unspecified (principal); E87.1 Hypo-osmolality and hyponatremia; I67.5 Moyamoya disease; R55 Syncope and collapse; E86.0 Dehydration; I69.320 Aphasia following cerebral infarction; E03.9 Hypothyroidism, unspecified; N18.31 Chronic kidney disease, stage 3a; D64.9 Anemia, unspecified; E11.22 Type 2 diabetes mellitus with diabetic chronic kidney disease; I12.9 Hypertensive chronic kidney disease with stage 1 through stage 4 chronic kidney disease, or unspecified chronic kidney disease; E55.9 Vitamin D deficiency, unspecified; I69.390 Apraxia following cerebral infarction; I69.322 Dysarthria following cerebral infarction; Z79.85 Long-term (current) use of injectable non-insulin antidiabetic drugs; Z79.82 Long term (current) use of aspirin; Z82.3 Family history of stroke; Z88.1 Allergy status to other antibiotic agents; Z91.040 Latex allergy status; Z88.0 Allergy status to penicillin; Z88.6 Allergy status to analgesic agent; Z79.890 Hormone replacement therapy; Z79.02 Long term (current) use of antithrombotics/antiplatelets; Z79.84 Long term (current) use of oral hypoglycemic drugs; Z91.048 Other nonmedicinal substance allergy status; Z82.49 Family history of ischemic heart disease and other diseases of the circulatory system; Z11.52 Encounter for screening for COVID-19
CPT/HCPCS: 70450; 70496; 70498; 70551; 71045; 71275; 80048; 80053; 80061; 81003; 82962; 83036; 83690; 84484; 85025; 87502; 87811; 92610; 93005; 93306; 96374; 97161; 97166; 99291; Q9950; Q9967

== ENCOUNTER → 2024-10-03 06:59 | Outpatient (REF) | payer MEDICARE, SELFPAY | LOC: RAD 06:59 | PROVIDERS: ATTENDING PHYSICIAN Internal Medicine Hematology & Oncology; FAMILY PHYSICIAN Physician Assistant; PRIMARYCARE PHYSICIAN Family Medicine | DX: D64.9 Anemia, unspecified (principal); D51.9 Vitamin B12 deficiency anemia, unspecified | CPT/HCPCS: 76700 ==

== ENCOUNTER 2025-02-20 23:15 | Inpatient (IN) | payer MEDICARE, SELFPAY ==
[2025-02-20 21:40] LABS: Glucose - Point of Care 233 mg/dl (70-99)
[2025-02-20 21:46] VITALS: BP 136/66; BMI 24.9
[2025-02-20 21:50] LABS: % Basophils 0.5 % (0-2); % Eosinophils 0.2 % (0-6); % Immature Granulocytes 0.5 % (0-0.5); % Lymphocytes 9.3 % (20.5-51.1); % Monocytes 5.2 % (1.7-9.3); % Neutrophils 84.3 % (42.2-75.2); Absolute Basophils 0.1 10^3/uL (0-0.2); Absolute Immature Granulocytes 0.1 10^3/uL (0-0.05); Absolute Lymphocytes 1.4 10^3/uL (1.2-3.4); Absolute Monocytes 0.8 10^3/uL (0.1-0.6); Absolute Neutrophils 12.4 10^3/uL (1.4-6.5); Hematocrit 26.7 % (37.0-47.0); Hemoglobin 9.6 g/dL (12.0-16.0); Mean Corpuscular Hgb 33.1 pg (27.0-31.0); Mean Corpuscular Volume 92.1 fL (81.0-99.0); Nucleated Red Blood Cells % 0 %; Platelet Count 249 10^3/uL (130-400); Red Cell Dist. Width 11.6 % (11.5-14.5); White Blood Cell Count 14.7 10^3/uL (4.8-10.8)
[2025-02-20 22:00] VITALS: BP 148/60
[2025-02-20 22:02] LABS: INR 1.12; PT 14.8 Sec (11.4-14.6)
[2025-02-20 22:03] LABS: APTT 25.3 Sec (23.4-35.0)
[2025-02-20 22:12] LABS: ALT (SGPT) 18 U/L (0-35); AST (SGOT) 22 U/L (14-36); Albumin 3.6 g/dl (3.5-5.0); Alkaline Phosphatase 103 U/L (38-126); Blood Urea Nitrogen 28 mg/dl (7-17); Calcium 9.7 mg/dl (8.4-10.2); Carbon Dioxide 21 mmol/L (22-30); Chloride 94 mmol/L (98-107); Estimated Creatinine Clearance 28 ml/min; Glucose 218 mg/dl (70-99); Sodium 123 mmol/L (135-145); Total Bilirubin 0.6 mg/dl (0.2-1.3); Total Protein 5.6 g/dl (6.3-8.2); eGFR 37.03
--- NOTE | 2025-02-20 22:13 | ED.CVA ---
History of Present Illness
General
Chief Complaint: CVA/TIA Symptoms
Time Seen by Provider: 02/20/25 21:23
Onset of Stroke Symptoms
Onset of symptoms known: Yes
Date of onset of symptoms: 02/20/25
Time of onset of symptoms: 20:50
Time pt last seen normal is known: Yes
Date last time pt seen normal: 02/20/25
Time last time pt seen normal: 20:50
History of Present Illness
History of Present Illness:
69-year-old female history of diabetes, moyamoya disease, previous strokes with baseline aphasia, right facial droop and right arm weakness presenting with worsening aphasia starting at 850 tonight. Per EMS, patient is at baseline right sided
weakness and right-sided facial droop but had worsening aphasia prompting ED arrival. Patient denies falls or head trauma. Patient denies fever, cough, chest pain, shortness of breath or urinary symptoms. Patient arrived as a stroke alert.
Past History
Past History
ED Past Medical History: CVA (right MCA stroke), HTN, IDDM, Hypothyroidism and Other (moyamoya, surgically remediated)
ED Past Surgical History: Other (neurosurgery craniotomy for moyamoya)
Social History
Tobacco: Non-smoker
Alcohol: None
Drug: None
Personal:
Living: with family
Employment: Employed
Family History
Family History: Other (reviewed and noncontributory)
Phy Exam
Physical Exam
Physical Exam:
General: Alert, no acute distress
Head: NCAT
Eyes: clear conjunctiva
Neck: supple
Cardiac: regular rate and rhythm, no murmur
Lungs: clear to auscultation bilaterally. No wheezes, rales, or rhonchi. No respiratory distress.
Abdomen: soft, nondistended nontender. No rebound or guarding.
MSK: no lower extremity edema bilaterally. No deformity
Skin: warm, dry
Neuro: Alert and oriented x3. Right-sided facial droop at baseline. Expressive aphasia which patient states is worse than her baseline. No pronator drift. Normal finger-nose.
Course
Orders/Labs/Results
Orders:
Orders
02/20/25 21:24
Electrocardiogram (*1) Urgent
Reason for Study: Other
Other Reason for Exam: Possible Stroke
CT HEAD STROKE ALERT W/o Cont Stat
Comment:
Reason For Exam: aphasia
Bedside Glucose- Treatment ONCE
Cardiac Monitoring- Treatment ONCE
EKG- Treatment ONCE
IV Insert/Care/Rem.- Treatment PRN
Vital Signs As Directed
Frequency: Other
Weight As Directed
Frequency: Once
Comment: ZERO STRETCHER SCALE FOR ACCURATE WEIGHT
O2 Therapy [RESP] Urgent
Titrate/Wean O2 to maintain O2 sat greater than (%): 93
Special Instructions: MAINTAIN CONTINUOUS O2 SATS > OR = 93%
02/20/25 21:31
CT HEAD/NECK ANG STROKE ALERT Stat
Comment:
Reason For Exam: stroke alert
02/20/25 21:39
PTT Urgent
Prothrombin Time Urgent
02/20/25 21:40
Complete Blood Count/With Diff Urgent
Comprehensive Metabolic Panel Urgent
Serum Osmolality Urgent
Comment: ADD ON
Troponin I Urgent
02/20/25 22:16
UA Reflex to Culture [Urinalysis Reflex To Culture] Urgent
Date Specimen was Collected: 02/20/25
Time Specimen was Collected: 22:18
02/20/25 22:41
Pantoprazole [Protonix IV] 80 mg IV NOW STA
02/20/25 23:00
Osmolality, Random Urine Stat
Urine Sodium Routine
Flush (0.9% Sodium Chloride) [Flush (Nss)] See Dose Instructions IV PER PROTOCOL
02/20/25 23:01
Add On- LAB Stat
Tests Added?: serum osmolality
02/20/25 23:02
Type+Screen Urgent
02/20/25 23:15
Admit/Transfer Patient As Directed
Co-Sign Provider:
Level of Care: Inpatient admission
Assign to:: Telemetry
Physician / Group: samuel
Diagnosis: cva/GI bleed
Reason for Telemetry: CVA/TIA
Date to Stop Telemetry: 02/23/25
Time to Stop Telemetry: 11:00
Reason for Hospitalization: GI bleed
CVA
Expected length of stay greater than two midnights?: Yes
ELOS- Estimated Length of Stay in days: 3
I certify the patient meets the requirements for IP care: Yes
PRN Pain Medication Management As Directed
May give lesser potent ordered pain med per pt: Yes
preference::
Protocol:: Medication orders for pain may be administered in a
manner that supports deferring to patient preference
when the pt is:
- Requesting an ordered lesser potent pain medication.
Least to most potent pain medications are defined
as: acetaminophen < NSAID < tramadol < opioids
(morphine, oxycodone, hydromorphone).
- Requesting a lesser dose of the same medication IF
ORDERED.
- Requesting a less intrusive route of administration
if both routes are prescribed by the provider (PO <
IV).
02/20/25 23:17
Code Status As Directed
Resuscitation Status: Full Code
02/20/25 23:21
0.9% Sodium Chloride 500 ml [Nss] 500 ml IV BOLUS
02/20/25 23:28
Acetaminophen [Tylenol] 1,000 mg PO NOW STA
02/23/25 11:00
DC Protocol for Telemetry ONCE
Abnormal Lab Results
02/20/25 02/20/25
21:39 21:40
WBC 14.7 H 10^3/uL
(4.8-10.8)
RBC 2.90 L 10^6/uL
(4.20-5.40)
Hgb 9.6 L g/dL
(12.0-16.0)
Hct 26.7 L %
(37.0-47.0)
MCH 33.1 H pg
(27.0-31.0)
Abs Immat Gran (auto) 0.1 H 10^3/uL
(0-0.05)
Absolute Neuts (auto) 12.4 H 10^3/uL
(1.4-6.5)
Absolute Monos (auto) 0.8 H 10^3/uL
(0.1-0.6)
Neutrophils % 84.3 H %
(42.2-75.2)
Lymphocytes % 9.3 L %
(20.5-51.1)
PT 14.8 H Sec
(11.4-14.6)
Sodium 123 L mmol/L
(135-145)
Chloride 94 L mmol/L
(98-107)
Carbon Dioxide 21 L mmol/L
(22-30)
BUN 28 H mg/dl
(7-17)
Creatinine 1.5 H mg/dL
(0.6-1.0)
Glucose 218 H mg/dl
(70-99)
Total Protein 5.6 L g/dl
(6.3-8.2)
POC Glucose 233 H mg/dl
(70-99)
02/20/25 21:40
02/20/25 21:40
Vital Signs
Initial and Last Documented VS:
Initial Vital Signs
Temp Pulse Resp BP Pulse Ox
97.5 F 106 15 136/66 96
02/20/25 21:46 02/20/25 21:46 02/20/25 21:46 02/20/25 21:46 02/20/25 21:46
Last Documented Vital Signs
Temp Pulse Resp BP Pulse Ox
97.5 F 95 20 148/60 100
02/20/25 21:46 02/20/25 22:00 02/20/25 22:00 02/20/25 22:00 02/20/25 22:00
MDM/Problems Addressed
Differential Diagnosis Includes:
Stroke, TIA, intracranial hemorrhage, electrolyte abnormality, FRAN, UTI
MDM/Problems Addressed:
69-year-old female history of previous stroke with baseline aphasia, right-sided facial droop and right-sided weakness presenting with worsening aphasia starting at 850pm tonight. Stroke alert was called by EMS prior to arrival. NIH stroke scale
2. CT head shows No new acute intracranial abnormality. Discussed with Dr. Owusu, neurology, who does not recommend TNK at this time given significant risk for bleeding due to history of moyamoya. Recommended to continue aspirin and atorvastatin, does
not recommend Plavix due to bleeding risk. Recommended CTA head/neck. CTA head/neck shows Dimin[place] caliber [place] vessels and severe stenoses of the proximal segments of the bilateral middle cerebral arteries and chronic
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 Overall appearance is similar compared to the CT head and neck angiogram from 08/29/2024.
Labs reviewed, significant for WBC 14.7. Hyponatremia at 123 (baseline 130-143). Hemoglobin 9.6 (baseline 10.7-11.8).
On reevaluation, patient had bloody bowel movement, first episode. Pt denies any abdominal pain. Abdomen soft nondistended nontender. Ordered protonix. Given patient had CTA head/neck earlier, will hold on CTA abdomen/pelvis to further assess likely
lower GI bleed. Discussed results with pt and family at bedside. Recommended admission, agreeable.
Discussed with hospitalist for admission
*EKG
Interpreted by ED Provider?: Yes (EKG shows sinus rhythm at 104 bpm with QRS [address] depressions V5 V6, T wave versions leads I and aVL)
*Critical Care Note
Total Time (30-74mins, 75-104mins- exclusive of procedures): Not Applicable
ED Attending Note
-
Portions of this chart may have been created with voice recognition software.� Occasional wrong word or��sound alike� substitutions may have occurred due to the inherent limitations of voice recognition software.
Discharge Plan
Departure
Patient Disposition: Admit
Date of Disposition: 02/20/25
Time of Disposition: 23:02
Presentation/result/management discussed w/ accepting MD/DO: Hospitalist
Discharge Problem:
Aphasia due to acute cerebrovascular accident (CVA), GI (gastrointestinal bleed), Acute hyponatremia
Prescriptions:
No Action
cholecalciferol (vitamin D3) 1,000 UNITS tablet
1,000 units PO DAILY
levothyroxine 112 mcg tablet
112 mcg PO DAILY@0700
Trulicity 0.75 mg/0.5 mL pen injector
0.75 mg SC SA
atorvastatin 80 MG tablet
80 mg PO
aspirin 81 MG tablet,delayed release (DR/EC)
81 mg PO DAILY
olmesartan-hydrochlorothiazide 20-12.5 mg Tablet
1 tab PO DAILY
Janumet 50-500 mg Tablet
1 tab PO DAILY
Referrals:
NONE,* [Active, Internal Medicine]
Interventions
Interventions:
*General Assessment Last Done: 02/20/25 21:27
ED- Pulmonary Assessment Last Done: 02/20/25 21:41
ED- Neurological Assessment Last Done: 02/20/25 21:41
ED- Cardiac Assessment Last Done: 02/20/25 21:41
ED Swallowing Screen Last Done: 02/20/25 21:41
Discharge Date and Time
Print Language: [id number]
[2025-02-20 22:15] VITALS: BP 148/65
[2025-02-20 22:24] LABS: Troponin I < 0.012 ng/ml
--- NOTE | 2025-02-20 22:48 | HPS.HSE ---
Family Physician
-
Family Physician: * NONE
Chief Complaint
-
dizzy, abdominal pain, bright bloody stool
History of Present Illness
69-year-old female history of diabetes, moyamoya disease, previous strokes with baseline expressive aphasia, right facial droop and right arm weakness presenting with worsening aphasia and dizzy while she was having abdominal pain and diarrhea at
home. she felt like she was going to pass out.denied nausea, vomiting. she had one episode of bloody diarrhea in ER. denied fever, chills, congestion,cough. denied chest pain, sob. denied dysuria or hematuria.
head Ct with no acute finding. hgb of 9.6,w bc 14.7, na 126. admitting for further management.
her colonoscopy was years ago. she did cologuard last year.
Medical History
Past Medical History
Past Medical History: Reports Other
Additional Past Medical History:
CVA
Hypertension
IDDM
Hypothyroidism
Moyamoya
Past Surgical History: Reports Other
Additional Past Surgical History:
Neurosurgery craniotomy for moyamoya
b/l feet surgery
tubal ligation
[id number] fusion
Social History
Tobacco: Non-smoker
Alcohol: None
Drug: None
Living: With Family
Family History
Family History: Not pertinent
Allergies / Home Medications
Allergies reflects when Allergies were last updated in [facility].
Home Medications with original date entered in [facility]
Allergy/Medication List:
Allergies
Allergy/AdvReac Type Severity Reaction Status Date / Time
adhesive Allergy Unknown Verified 02/27/22 08:25
clindamycin Allergy diarrhea Verified 02/27/22 20:42
latex Allergy Unknown Verified 02/27/22 08:25
naproxen Allergy facial Verified 02/27/22 20:42
swelling
Penicillins Allergy Anaphylaxis Verified 02/27/22 08:25
Home Medications
cholecalciferol (vitamin D3) 25 mcg (1,000 unit) tablet 1,000 units PO DAILY Supplement 02/27/22
aspirin 81 mg tablet,delayed release 81 mg PO DAILY Blood Clot Prevention/Tx 08/29/24
atorvastatin 80 mg tablet 80 mg PO DAILY@2000 High Cholesterol 08/29/24
dulaglutide 0.75 mg/0.5 mL subcutaneous pen injector (Trulicity) 0.75 mg SC SA Diabetes 08/29/24
levothyroxine 112 mcg tablet 112 mcg PO DAILY@0700 Thyroid 08/29/24
olmesartan 20 mg-hydrochlorothiazide 12.5 mg tablet 1 tab PO DAILY 02/20/25
Review of Systems
-
Constitutional: Reports No Symptoms
EENT: Reports No Symptoms
Respiratory: Reports No Symptoms
Cardiac: Reports No Symptoms
Abdomen/GI: Reports Abdominal Pain
: Reports No Symptoms
Musculoskeletal: Reports No Symptoms
Skin: Reports No Symptoms
Neurological: Reports Dizzy and Other (right arm weakness,expressive aphasia)
Endocrine: Reports No Symptoms
Hematologic/Lymphatic: Reports No Symptoms
Psych: Reports No Symptoms
Physical Exam
Vital Signs
Vital Signs
Temp Pulse Resp BP Pulse Ox
97.5 F 95 20 148/60 100
02/20/25 21:46 02/20/25 22:00 02/20/25 22:00 02/20/25 22:00 02/20/25 22:00
Physical Exam
General: Well Developed, Well Nourished and No Apparent Distress
HEENT: NormoCephalic, Moist mucous membranes and Atraumatic
Respiratory: Clear
Cardiac: S1/S2 and Regular Rhythm; No Murmur or Rub
GI: Soft, Non Tender, Non Distended and Normal Bowel Sounds; No Organomegaly
Rectal: Deferred by Provider
Musculoskeletal: No Clubbing, No Cyanosis and No Edema
Skin: No Rash
Neuro: AO x 3, Nonfocal/grossly intact and Other (right arm weakness, expressive aphasia from previous stroke)
Psych: Calm
Laboratory Results
-
02/20/25 21:40
02/20/25 21:40
Laboratory Results
PT 14.8 Sec (11.4-14.6) H 02/20/25 21:39
INR 1.12 02/20/25 21:39
APTT 25.3 Sec (23.4-35.0) 02/20/25 21:39
Total Bilirubin 0.6 mg/dl (0.2-1.3) 02/20/25 21:40
AST 22 U/L (14-36) 02/20/25 21:40
ALT 18 U/L (0-35) 02/20/25 21:40
Alkaline Phosphatase 103 U/L (38-126) 02/20/25 21:40
Troponin I < 0.012 ng/ml 02/20/25 21:40
Data Reviewed
-
CT Scan: Report Reviewed by me
Lab Data: Labs Reviewed by me
Impression/Plan
-
# Worsening aphasia/dizzy likely vasovagal from abdominal pain/diarrhea vs r/o acute CVA/TIA
# History of aphasia and right-sided facial droop from previous stroke
- CT head with no acute findings
- Aspirin statin continued
- No Plavix due to moyamoya history
- PT OT consulted
- Obtain A1c and lipid profile
-MRI deferred to neuro
- Neurology consulted
- Head and neck CT with impression Diminutive caliber of the [place] vessels and severe stenoses of the proximal segments of the bilateral middle cerebral arteries and chronic occlusions of the bilateral supraclinoid internal carotid
arteries, most in keeping with the patient's known moyamoya disease. Overall appearance is similar compared to the CT head and neck angiogram from 08/29/2024.
# Acute on chronic blood loss anemia secondary to GI bleed
- Bloody bowel movement in the ER
- IV PPI
- Keep patient n.p.o.
- GI consulted
# Hyponatremia/FRAN on CKD stage I1 likely from HCTZ
- Obtain urine sodium, osmolality, serum osmolality
- Sodium 126, creatinine 1.5
-BMP in 6 hours
-patient received normal saline x1 bag in ER
-restrict free water
# Leukocytosis likely stress reaction
- WBCs 14.7, patient is afebrile
-obtain UA
# DM2
-check a1c
-ISS ordered
-Trulicity on hold
#essential HTN
-hold hctz and olmesartan due to FRAN and hyponatremia
-CTm blood pressure
#HLD
-statin
#Hypothyroidism
-Continue levothyroxine
DVT PPX - scd
Full code
[2025-02-20 22:53] VITALS: BP 148/59
--- NOTE | 2025-02-20 22:55 | W.PN.UPDATE ---
Update Note
Progress Note Update
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 I agree defined session physical. Concur with assessment and plan listed otherwise.
Briefly, this is a 79-year-old with past medical history significant for moyamoya disease, prior CVA with residual aphasia and right-sided weakness status post revascularization surgery, hyperlipidemia, hypertension, [id number] diabetes
presenting to the emergency department with worsening of her baseline aphasia.
By EMS they were called because patient had worsening aphasia that started at around 850pm. They noted that she had baseline right-sided weakness and baseline right-sided facial droop. She denied any trauma. She denied any other symptoms.
Patient was alert and oriented and able to correct history stated that she had a abdominal crampy episode at around the time. Then she had watery diarrhea that was voluminous but was not bloody. When she got up she felt lightheaded. She denies
any vertigo symptoms. She denies any syncopal episode. She denies any chest pain palpitations. This the lightheadedness lasted for about 30 minutes until EMS arrived. At that time she noted that she did have worsening aphasia which gradually
improved now has completely resolved back to her baseline. She had another diarrheal bowel movement in the emergency department. This was mixed with fresh blood. Patient denies any previous episodes of diarrhea. She is not on any laxatives. She
denies any fevers or chill. She denies any sick contacts. She reports history of hemorrhoids and hemorrhoidal bleed in the past. She also reports history of diverticular bleeds over 10 years ago. Her last colonoscopy was likewise about 10 years
ago she reportedly had a Cologuard that was negative about 3 to 4 years ago. She currently denies abdominal pain. He denies any nausea or vomiting. She has a mild leukocytosis. Patient reported that she started taking hydrochlorothiazide about 3
weeks ago. She denies feeling lightheaded or dizzy prior to today.
Case was discussed with neurology by ED and recommendation is to continue aspirin and statin, no Plavix. While she was in the ED she had a bloody bowel movement.
In the ED he was afebrile, blood pressure was at 140/60 with a pulse of 95 satting 100% on room air.
White count was 14.7,HGb 9.6 wt normal plt. Sodium was 123 with a otherwise normal electrolytes. BUN and creatinine were stable at 28 and 1.5 (slightly increased from baseline of around 1.-1.3.). ECG with tachycardia at a rate of 108 otherwise
nonischemic. Troponin was negative.
CT of the head shows no acute changes. CT angio shows changes consistent with her moyamoya disease seen on prior imaging in August 2024 (she has diminutive caliber of the [place] and severe stenosis of the proximal segments of the
bilateral middle cerebral arteries and chronic occlusions of the bilateral supraclinoid internal carotid arteries).
1. Aphasia - h/o cohen cohen s/p stenting with residual aphasia an right sided weakness. Transient worsening of aphasia, now back down to baseline. According episode of feeling lightheaded after a diarrheal bowel movement. Suspect hemodynamic
changes rather than an acute ischemic process. CT scan head negative for acute stroke. CT angio shows chronic disease changes without any new focal stenosis. No acute bleed.
- Admit to telemetry observation
- Per neurology, continue aspirin and statin, no Plavix in setting of moyamoya
- Neurochecks Q6
- No indication for repeat MRI at this time, repeat MRI per neurology
- Neurology consultation
2. Dizziness/lightheadedness�patient with clearly orthostatic symptoms in the setting of diarrhea and had a bright red bloody diarrhea that appears to be watery diarrhea mixed with stool hemorrhoidal bleed rather than upper GI bleed. Cannot rule
out diverticular bleed. She has moderate degree of leukocytosis but currently is afebrile and without any abdominal pain and exam is tenderness. Unlikely acute diverticulitis. Cannot rule out ischemic colitis. Possibly infectious diarrhea
however patient's only had 2 episodes of watery bowel movement.
- IV fluid bolus x 1
- Stool studies if recurrent diarrhea
- CT scan of the abdomen pelvis if develops pain or has fever
3. GI bleed -suspect lower GI bleed from hemorrhoids. Cannot rule out diverticular bleed.
- N.p.o. for now
- Type and screen on next labs
- Serial H&H
- GI consultation
4. Hyponatremia�sodium 123, baseline sodium around 130s to 134. She looks euvolemic but did have episodes of diarrhea recently. She was recently started on hydrochlorothiazide 12.5 mg
- Free water restriction
- 1 L normal saline fluid bolus x 1
- Repeat serum sodium after fluid bolus
- Checking urine lites and osmolality
-Orthostatic vital signs
- TSH in a.m.
- Continue levothyroxine
5. DM2
- Sliding scale insulin every 6 for now
6. Cr 1.5, mild FRAN - Suspect prerenal
- iv fluids as above
DVT PPX - SCDs
Code status - Full Code
[2025-02-20 23:00] VITALS: BP 143/68
[2025-02-20] MEDS: PROTONIX IV 80 MG IV (23:16)
[2025-02-20] MEDS: TYLENOL 1000 MG PO (23:35)
[2025-02-20] MEDS: NSS 500 IV (23:40)
[2025-02-20] MEDS: FLUSH (NSS) 1 FLUSH IV (23:40)
[2025-02-21] VITALS (12 sets, daily range): BP systolic 123–155; BP diastolic 55–93; PULSE 88–107; BMI 25.0
[2025-02-21 00:29] LABS: Osmolality Serum 283 mOsm/kg (275-300)
[2025-02-21 01:20] LABS: Urine Albumin 2+ (Neg - Trace); Urine Bilirubin Negative (Negative); Urine Character Clear (Clear); Urine Color Yellow; Urine Glucose Negative (Negative); Urine Ketone Negative (Negative); Urine Leukocyte 2+ (Negative); Urine Nitrite Negative (Negative); Urine Occult Blood 1+ (Negative); Urine Specific Gravity 1.015 (<1.030); Urine Urobilinogen Negative (Neg - 1+)
[2025-02-21 01:36] LABS: Urine Sodium 72 mmol/L (30-90)
[2025-02-21 01:49] LABS: Osmolality Urine 557 mOsm/kg (300-900)
[2025-02-21 01:53] LABS: Urine Bacteria Moderate (Negative); Urine Calcium Oxalate Crystals Seen; Urine Squamous Cell 0-2 /LPF (Few); Urine White Cell 16-20 /HPF (0-5)
--- NOTE | 2025-02-21 02:58 | PTCARENOTE ---
Pt admitted from ED, AAOx3. Denied pain. NIH 2 and neuro status at patient's baseline. Pt afebrile. VSS. NSR on telemetry box #4. S[address] in [address]. Call valdes within reach and bed an in lowest position.
[2025-02-21 04:36] LABS: Hematocrit 29.8 % (37.0-47.0); Hemoglobin 10.8 g/dL (12.0-16.0); Mean Corp Hgb Conc. 36.2 g/dL (33.0-37.0); Mean Corpuscular Hgb 32.7 pg (27.0-31.0); Mean Corpuscular Volume 90.3 fL (81.0-99.0); Mean Platelet Volume 9.2 fL (7.4-10.4); Platelet Count 247 10^3/uL (130-400); Red Cell Dist. Width 11.5 % (11.5-14.5); White Blood Cell Count 9.9 10^3/uL (4.8-10.8)
[2025-02-21] MEDS: SYNTHROID 112 MCG PO (05:26)
[2025-02-21 05:48] LABS: Hematocrit 26.5 % (37.0-47.0); Hemoglobin 9.6 g/dL (12.0-16.0)
[2025-02-21 06:08] LABS: Glucose - Point of Care 126 mg/dl (70-99)
[2025-02-21 06:13] LABS: Blood Urea Nitrogen 28 mg/dl (7-17); Calcium 9.5 mg/dl (8.4-10.2); Carbon Dioxide 21 mmol/L (22-30); Chloride 100 mmol/L (98-107); Estimated Creatinine Clearance 30 ml/min; Glucose 123 mg/dl (70-99); HDL Cholesterol 77 mg/dl; LDL Cholesterol, Calculated 30 mg/dl; Potassium 4.9 mmol/L (3.5-5.1); Sodium 127 mmol/L (135-145); Total Cholesterol 113 mg/dl (50-199); Triglyceride 34 mg/dl (10-149); Very Low Density Lipoprotein 6 mg/dl (0-30); eGFR 40.22
--- NOTE | 2025-02-21 06:27 | CON.GI ---
Addendum entered and electronically signed by Ashutosh Harrell MD 02/21/25 14:03:
I saw and examined the patient.
The OIL RIGGER or PA's note was reviewed and I agree with the note.
Comment:
69 y/o woman with moyamoya, cva, htn, NIDDM. She had abdominal pain and bloody stool, with weakness. Las colonoscopy 2009 with polyps. No nsaids. Bleeding has resolved.
abd: soft, nontender
impression:
bloody per rectum
anemia
plan:
neurology has cleared
would proceed with colonoscopy pt and prefer inpatient study, would add egd in light of pain and hx of anemia
follow hgb
Original Note:
Consultation
-
Date/Time Consultation Requested: 02/21/25129
Date/Time Consultation Performed: 02/21/25629
Requesting Provider: ANDREIA Lemus
Performing Provider: ANDREIA Peck, Ashutosh Harrell MD
Reason for Consultation: GI bleed
Medical History
Chief Complaint / HPI
Chief Complaint: weakness
History of Present Illness:
Pt is a 69yo with hx moyamoya with prior surgical intervention, CVA with baseline aphasia/facial droop/right arm weakness, HTN, hypercholesterolemia, hypothyroidism, NIDDM, CKD, prior cervical fusion presents with worsening aphasia with stoke alert
called with stable HCT. On admission noted with Na 123, hbg 9.6 with baseline 10-11. Pt also reported diarrhea and abdominal pain and episode of bloody stool and asked to see for further evaluation. Hx colonoscopy in 2009 good prep to TI with .
[place] with 4 mm polyp proximal transverse colon, 2 - 3 mm polyp rectum, diverticulosis, hemorrhoids.
In review with patient she admits to evaluation with hematology over last year. She did not require transfusion and was unsure about iron studies. She denies prior GI bleeding til admission or in past. She admits to chronic constipation
without use of bowel regiment and wt loss of 65 lbs with med changes. She denies dysphagia, GERD, nausea, vomiting, abdominal pain, diarrhea, or black stools. No hx EGD. Only on ASA no other NSAID or AC use.
Past Medical History
Past Medical History: CVA, HTN, Hypercholesterolemia, Hypothyroidism, NIDDM, Renal Failure (CKD) and Other (pilonidal cyst, moyamoya disease, vitamin D deficiency)
Past Surgical History: Brain (surgical intervention for moyamoya) and Orthopedic (cervical fusion)
Social History
Tobacco: Non-Smoker
Alcohol: None
Drug: None
Personal:
Living: With Family
Employment: Retired
Family History
Family History: Other (distant relative with colon cancer, first degree relative with polyps)
Allergies / Home Medications
Allergy/AdvReac Type Severity Reaction Status Date / Time
adhesive Allergy Unknown Verified 02/27/22 08:25
clindamycin Allergy diarrhea Verified 02/27/22 20:42
latex Allergy Unknown Verified 02/27/22 08:25
naproxen Allergy facial Verified 02/27/22 20:42
swelling
Penicillins Allergy Anaphylaxis Verified 02/27/22 08:25
�Medication �Instructions �Recorded
cholecalciferol (vitamin D3) 25 1,000 units PO DAILY Supplement 02/27/22
mcg (1,000 unit) tablet
aspirin 81 mg tablet,delayed 81 mg PO DAILY Blood Clot 08/29/24
release Prevention/Tx
atorvastatin 80 mg tablet 80 mg PO High Cholesterol 08/29/24
dulaglutide 0.75 mg/0.5 mL 0.75 mg SC SA Diabetes 08/29/24
subcutaneous pen injector
(Trulicity)
levothyroxine 112 mcg tablet 112 mcg PO DAILY@0700 Thyroid 08/29/24
olmesartan 20 1 tab PO DAILY 02/20/25
mg-hydrochlorothiazide 12.5 mg
tablet
sitagliptin phosphate 50 1 tab PO DAILY 02/20/25
mg-metformin 500 mg tablet
(Janumet)
Review of Systems
-
Unable to obtain full review of systems at this time due to: Other (some speak difficulty with hx chronic aphasia )
History Source: Patient
Constitutional: Reports Weight Loss (pt admits to 65 lbs wt loss in past year with med changes ) and Other (chronic aphasia )
EENT: Reports Other (facial droop)
Respiratory: Reports No Symptoms
Cardiac: Reports No Symptoms
Abdomen/GI: Reports Constipated and Bloody Stools
: Reports No Symptoms
Musculoskeletal: Reports No Symptoms
Skin: Reports No Symptoms
Neurological: Reports Other
Endocrine: Reports No Symptoms
Hematologic/Lymphatic: Reports Bleeding
Vital Signs
Temp Pulse Resp BP Pulse Ox
98.3 F 95 18 155/69 97
02/21/25 01:48 02/21/25 01:48 02/21/25 01:48 02/21/25 01:48 02/21/25 01:48
Physical Exam
Exam
General: Well Developed, Well Nourished and No Apparent Distress
HEENT: Normocephalic and Anicteric
Respiratory: Clear
Cardiac: Regular Rhythm
GI: Soft, Non Tender and Non Distended
Rectal: Other (hemorrhoid, brick red with some mucous, no impaction, no masses or lesions)
Musculoskeletal: No Clubbing and No Cyanosis
Skin: Warm and Dry
Neuro: Awake, Alert and AO x 3
Psych: Calm
Results
WBC 9.9 10^3/uL (4.8-10.8) 02/21/25 04:16
Hgb 9.6 g/dL (12.0-16.0) L 02/21/25 05:27
Hct 26.5 % (37.0-47.0) L 02/21/25 05:27
MCV 90.3 fL (81.0-99.0) 02/21/25 04:16
Plt Count 247 10^3/uL (130-400) 02/21/25 04:16
Absolute Neuts (auto) 12.4 10^3/uL (1.4-6.5) H 02/20/25 21:40
PT 14.8 Sec (11.4-14.6) H 02/20/25 21:39
INR 1.12 02/20/25 21:39
APTT 25.3 Sec (23.4-35.0) 02/20/25 21:39
Sodium 127 mmol/L (135-145) L 02/21/25 05:27
Potassium 4.9 mmol/L (3.5-5.1) 02/21/25 05:27
Chloride 100 mmol/L (98-107) 02/21/25 05:27
Carbon Dioxide 21 mmol/L (22-30) L 02/21/25 05:27
BUN 28 mg/dl (7-17) H 02/21/25 05:27
Creatinine 1.4 mg/dL (0.6-1.0) H 02/21/25 05:27
Calcium 9.5 mg/dl (8.4-10.2) 02/21/25 05:27
Total Bilirubin 0.6 mg/dl (0.2-1.3) 02/20/25 21:40
AST 22 U/L (14-36) 02/20/25 21:40
ALT 18 U/L (0-35) 02/20/25 21:40
Alkaline Phosphatase 103 U/L (38-126) 02/20/25 21:40
Diagnostic Image Results:
02/20 CT HEAD STROKE ALERT W/o Cont
no new acute intracranial abnormality.
ASPECT score limited due to previous bilateral frontoparietal transcortical infarcts, left greater than right.
02/20/25 CT HEAD/NECK ANG STROKE ALERT
Diminutive caliber of the [place] vessels and severe stenoses of the proximal segments of the bilateral middle cerebral arteries and chronic occlusions of the bilateral supraclinoid internal carotid arteries, most in keeping with the
patient's known moyamoya disease. Overall appearance is similar compared to the CT head and neck angiogram from 08/29/2024.
Prior GI Procedures:
EGD: none
Colonoscopy: 2009 good prep to TI with Dr. Luna with 4 mm polyp proximal transverse colon, 2 - 3 mm polyp rectum, dvierticulosis, hemorrhoids
Assessment / Plan
-
Pt is a 69yo with hx moyamoya with prior surgical intervention, CVA with baseline aphasia/facial droop/right arm weakness, HTN, hypercholesterolemia, hypothyroidism, NIDDM, CKD, prior cervical fusion presents with worsening aphasia with stoke alert
called with stable HCT. On admission noted with Na 123, hbg 9.6 with baseline 10-11. Pt also reported diarrhea and abdominal pain and episode of bloody stool and asked to see for further evaluation. Hx colonoscopy in 2009 good prep to TI with
Jeremy with 4 mm polyp proximal transverse colon, 2 - 3 mm polyp rectum, diverticulosis, hemorrhoids. No prior EGD. Only on ASA no other NSAID or AC use.
-worsening aphasia s/p stroke alert with stable HCT
-hx prior CVA with baseline aphasia/facial droop/right arm weakness
-rectal bleeding
-anemia with slight drop from baseline
-hyponatremia
-leukocytosis
-wt loss
other med problems:
-hx moyamoya with prior surgical intervention
- HTN
-hypercholesterolemia
-hypothyroidism
-NIDDM
-CKD
-prior cervical fusion
PLAN:
Etiology of bleeding related unclear note small hemorrhoid no mass on exam but brick colored stool
with current CVA symptoms await neurology evaluation
correct Na was 123 on admission now 127
ok for low residue diet
pt will need colonoscopy +/- EGD pt prefers OP testing
cont to monitor need for IP testing if increased bleeding when stable from neuro standpoint and Na corrected
add iron studies, B12, folate
trend hbg
-
-
Thank you for consultation and allowing me to participate in the patient's care. Please call the online affiliate marketing manager GI physician during the after hours with any questions or concerns.
--- NOTE | 2025-02-21 07:42 | W.PN.HOSP.TC ---
Today's Communication/Plan
-
Pending neurology consult.
Colonoscopy/EGD on Sunday.
Assessment / Plan
Assessment / Plan
Impression:
Patient is 69 years old female with history of hypertension, hyperlipidemia, diabetes, moyamoya disease who presented to the ER with dizziness with transient worsening of baseline Aphasia.�
Patient has history of moyamoya, with previous strokes with baseline aphasia, right sided facial droop presenting with worsening aphasia.
CT head/CTA unremarkable w/ old changes.
Admitting team discussed with neurology who did not recommend TNK, continue aspirin and statin, no plavix due to moyamoya hx.�
Patient also was having diarrhea w/ bright red blood. Seen by GI and recommendation for EGD/colonoscopy Sunday.
Next day patient back to baseline
Pending neurology eval.
Assessment/plan:
Worsening aphasia/dizzy likely vasovagal from abdominal pain/diarrhea vs r/o acute CVA/TIA
History of aphasia and right-sided facial droop from previous stroke
- CT head with no acute findings
- Aspirin statin continued
- No Plavix due to moyamoya history
- PT OT consulted
- Neurology consulted
-Patient back to baseline.
Acute on chronic blood loss anemia secondary to GI bleed
- Bloody bowel movement in the ER
- IV PPI
-Clear liquid
- GI consulted for EGD/colonoscopy Sunday
Hyponatremia/FRAN on CKD stage I1 likely from HCTZ
-Improving
Leukocytosis likely stress reaction
-Resolved
History of diabetes mellitus
Trulicity on hold
Insulin sliding scale
Diabetic diet (when not NPO)
Hemoglobin A1c pending
History of hypertension
Hold hctz and olmesartan due to FRAN and hyponatremia
-monitor blood pressure
Hyperlipemia
-statin
Hypothyroidism
-Continue levothyroxine
CODE STATUS: Full code
DVT prophylaxis: SCDs
Diet: Clear liquid diet,
Family communication: Discussed with at bedside
Disposition: Colonoscopy/EGD on Sunday
Total time spent on today's encounter was 65 minutes which included time spent in counseling the patient/family regarding diagnosis and treatment plan as listed above, goals of care, and symptom management. Case was discussed with nursing staff,
specialists, and care coordinators/case management. All labs and imaging personally reviewed by me. Remainder the time spent in detailed review of previous records, lab data, imaging, and other medical provider documentation.
Anticipated Discharge: > 48 hours
Subjective/Interval History
-
Date of Service: February 21, 2025
Patient seen and examined at bedside, speech improved, later discussed with at bedside, back to his line.
Otherwise denies any chest pain or shortness of breath.
Objective Data
-
Labs:
Laboratory Results
02/20/25 02/20/25 02/21/25
21:39 21:40 01:35
WBC 14.7 H
Hgb 9.6 L Cancelled
Hct 26.7 L Cancelled
Plt Count 249
PT 14.8 H
INR 1.12
APTT 25.3
Sodium 123 L
Potassium 4.0
Chloride 94 L
Carbon Dioxide 21 L
BUN 28 H
Creatinine 1.5 H
Glucose 218 H
Calcium 9.7
Total Bilirubin 0.6
AST 22
ALT 18
Alkaline Phosphatase 103
02/21/25 02/21/25 02/21/25
04:16 04:17 04:17
WBC 9.9
Hgb 10.8 L
Hct 29.8 L
Plt Count 247
PT
INR
APTT
Sodium Cancelled Cancelled
Potassium Cancelled
Chloride
Carbon Dioxide
BUN
Creatinine
Glucose
Calcium
Total Bilirubin
AST
ALT
Alkaline Phosphatase
02/21/25 02/21/25 02/21/25
04:17 04:17 04:17
WBC
Hgb
Hct
Plt Count
PT
INR
APTT
Sodium
Potassium Cancelled
Chloride Cancelled Cancelled
Carbon Dioxide Cancelled Cancelled
BUN Cancelled
Creatinine
Glucose
Calcium
Total Bilirubin
AST
ALT
Alkaline Phosphatase
02/21/25 02/21/25 02/21/25
04:17 04:17 04:17
WBC
Hgb
Hct
Plt Count
PT
INR
APTT
Sodium
Potassium
Chloride
Carbon Dioxide
BUN Cancelled
Creatinine Cancelled Cancelled
Glucose Cancelled Cancelled
Calcium Cancelled
Total Bilirubin
AST
ALT
Alkaline Phosphatase
02/21/25 02/21/25 02/21/25
04:17 05:27 13:35
WBC
Hgb 9.6 L Pending
Hct 26.5 L Pending
Plt Count
PT
INR
APTT
Sodium 127 L
Potassium 4.9
Chloride 100
Carbon Dioxide 21 L
BUN 28 H
Creatinine 1.4 H
Glucose 123 H
Calcium Cancelled 9.5
Total Bilirubin
AST
ALT
Alkaline Phosphatase
02/21/25
19:35
WBC
Hgb Pending
Hct Pending
Plt Count
PT
INR
APTT
Sodium
Potassium
Chloride
Carbon Dioxide
BUN
Creatinine
Glucose
Calcium
Total Bilirubin
AST
ALT
Alkaline Phosphatase
Vital Signs:
Vital Signs
Temp Pulse Resp BP Pulse Ox
98.3 F 95 18 155/69 97
02/21/25 01:48 02/21/25 01:48 02/21/25 01:48 02/21/25 01:48 02/21/25 01:48
Physical Exam
-
General: Well Developed, Well Nourished and No Apparent Distress
HEENT: Normocephalic, Atraumatic, Moist Mucous Membranes, No Ptosis, PERRLA and Nose Appears Normal
Respiratory: Rales and Non Labored Respirations
Cardiac: Regular Rhythm and S1/S2
Breast: Deferred by me
GI: Soft, Nontender, Nondistended and Normal Bowel Sounds
Genito-urinary: No Costovertebral Tender
Musculoskeletal: No Clubbing, No Cyanosis and No Edema
Skin: Warm
Neuro: Awake and Other (Baseline expressive aphasia and right facial droop with right arm weakness)
Psych: Calm
Data Reviewed
-
Diagnostic Radiology: Image personally visualized and interpreted and Report Reviewed by me
CT Scan: Image personally visualized and interpreted and Report Reviewed by me
Ultrasound: Image personally visualized and interpreted and Report Reviewed by me
MRI: Image personally visualized and interpreted and Report Reviewed by me
Medical Tests (Nuc Med, Echo etc): Image personally visualized and interpreted and Report Reviewed by me
Labs: Labs Reviewed by me
Old Records: Reviewed
[2025-02-21 08:00] LABS: Iron 41 ug/dl (37-170)
[2025-02-21 08:12] LABS: Percent Saturation 16 % (20-50); Total Iron Binding Capacity 251 ug/dl (265-497)
[2025-02-21 08:42] LABS: Ferritin 78.2 ng/ml (11.1-264.0)
[2025-02-21] MEDS: PROTONIX IV 40 MG IV ×2 (09:09→20:22)
[2025-02-21] MEDS: ASPIR LOW (ENTERIC COATED) 81 MG PO (09:09)
[2025-02-21] MEDS: MIRALAX 17 GRAMS PO (09:09)
[2025-02-21] MEDS: NSS (PRESERVATIVE FREE) 10 ML IV ×2 (09:09→20:22)
[2025-02-21 09:14] LABS: Folate 7.5 ng/ml (2.76-20); Vitamin B12 > 1000 pg/ml (239-931)
[2025-02-21] MEDS: TYLENOL 650 MG PO ×2 (09:27→20:21)
--- NOTE | 2025-02-21 11:46 | CON.NEURO ---
Neuro Assessment/Plan
Assessment
brain MRI imgs rev'd, 08/2024 imgs and report rev'd, agree multifocal encephalomalacia within the bilateral frontoparietal lobes, more pronounced on the left
CTA head/neck bilateral carotid clinoid occlusions, severe stenosis bilateral M1, left proximal M2
clinically most likely recrudescence of her prior stroke in the setting of acute illness. Even if this were a TIA, with her moyamoya I would not give her anything stronger than a baby aspirin and Lipitor 80
no further workup recommended
Consultation
Order
Date of Consultation: 02/21/25
Requesting Provider: Henny Nuñez
Reason for Consult: Stroke
Subjective/Objective
Subjective Data
Date of Service: February 21, 2025
from h&p:
69-year-old female history of diabetes, moyamoya disease, previous strokes with baseline expressive aphasia, right facial droop and right arm weakness presenting with worsening aphasia and dizzy while she was having abdominal pain and diarrhea at
home. she felt like she was going to pass out.denied nausea, vomiting. she had one episode of bloody diarrhea in ER. denied fever, chills, congestion,cough. denied chest pain, sob. denied dysuria or hematuria.
today she feels that she is at her neurological baseline levels of facial droop, right arm weakness, aphasia, and apraxia
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
PSH: L STA-MCA bypass, cervical fusion/2, Baker's arthroplasty, tubal ligation
Objective Data
Vital Signs
Temp Pulse Resp BP Pulse Ox
37.3 C 93 21 128/62 97
02/21/25 08:13 02/21/25 08:13 02/21/25 08:13 02/21/25 08:13 02/21/25 08:13
Lab Results
02/21/25 05:27
PT 14.8 Sec (11.4-14.6) H 02/20/25 21:39
INR 1.12 02/20/25 21:39
APTT 25.3 Sec (23.4-35.0) 02/20/25 21:39
Sodium 127 mmol/L (135-145) L 02/21/25 05:27
Potassium 4.9 mmol/L (3.5-5.1) 02/21/25 05:27
BUN 28 mg/dl (7-17) H 02/21/25 05:27
Glucose 123 mg/dl (70-99) H 02/21/25 05:27
Calcium 9.5 mg/dl (8.4-10.2) 02/21/25 05:27
LDL Cholesterol, Calc 30 mg/dl 02/21/25 05:27
Vitamin B12 > 1000 pg/ml (239-931) H 02/21/25 05:27
Patient Allergies
adhesive Allergy (Verified 02/27/22 08:25)
Unknown
clindamycin Allergy (Verified 02/27/22 20:42)
diarrhea
latex Allergy (Verified 02/27/22 08:25)
Unknown
naproxen Allergy (Verified 02/27/22 20:42)
facial swelling
Penicillins Allergy (Verified 02/27/22 08:25)
Anaphylaxis
Physical Exam
-
AAOx3, mild dysarthria, mild aphasia
RUQuadrantopsia, Right facial droop
mild spastic RUE monoplegia 5-/5 except floorperson with 3/5,
Medications
-
Active Medications
Generic Name Dose Route Start Last Admin
Trade Name Freq PRN Reason Stop Dose Admin
Acetaminophen 650 mg 02/21/25 01:35
Acetaminophen 650 Mg Rectal Suppository RECTAL 03/21/25 01:34
Q4HPRN PRN
[place], mild pain, or temp >100.4F
Acetaminophen 650 mg 02/21/25 01:35 02/21/25 09:27
Acetaminophen 325 Mg Tablet PO 03/21/25 01:34 650 mg
Q4HPRN PRN Administration
[place], mild pain, or temp >100.4F
Aspirin 81 mg 02/21/25 08:00 02/21/25 09:09
Aspirin 81 Mg (Enteric Coated) Tablet PO 03/21/25 07:59 81 mg
DAILY BETTY Administration
Atorvastatin Calcium 80 mg 02/21/25 20:00
Atorvastatin (Lipitor) 80 Mg Tablet PO 03/21/25 19:59
DAILY@2000 BETTY
Dextrose 12.5 grams 02/21/25 01:35
Dextrose 50% (0.5 Grams/Ml) 50 Ml Syringe IV 03/21/25 01:34
[id number] PRN
hypoglycemia
Protocol
Glucagon 1 mg 02/21/25 01:35
Glucagon 1 Mg Vial IM 03/21/25 01:34
PRN PRN
hypoglycemia
Protocol
Insulin Aspart 0 units 02/21/25 09:27
Insulin Aspart Moderate Resistance 300 Units/3 Ml Pen.Injctr SC 03/21/25 05:59
AC BETTY
Protocol
Levothyroxine Sodium 112 mcg 02/21/25 06:00 02/21/25 05:26
Levothyroxine 112 Mcg Tablet PO 03/21/25 05:59 112 mcg
DAILY@0600 BETTY Administration
Pantoprazole Sodium 40 mg 02/21/25 08:00 02/21/25 09:09
Pantoprazole Sodium 40 Mg/10 Ml Vial IV 03/21/25 07:59 40 mg
BID BETTY Administration
Polyethylene Glycol 17 grams 02/21/25 08:00 02/21/25 09:09
Polyethylene Glycol Powder 17 Grams Packet PO 03/21/25 07:59 17 grams
DAILY BETTY Administration
Sennosides 8.6 mg 02/21/25 22:00
Sennosides (Senokot) 8.6 Mg Tablet PO 03/21/25 21:59
HS BETTY
Sodium Chloride 0 flush 02/20/25 23:00 02/20/25 23:40
Sodium Chloride 0.9% (Flush) Syringe IV 03/20/25 22:59 1 flush
PER PROTOCOL BETTY Administration
Sodium Chloride 10 ml 02/21/25 08:00 02/21/25 09:09
Sodium Chloride 0.9% (Preservative Free) 10 Ml Vial IV 03/21/25 07:59 10 ml
BID BETTY Administration
Home Medications
�Medication �Instructions �Recorded
cholecalciferol (vitamin D3) 25 1,000 units PO DAILY Supplement 02/27/22
mcg (1,000 unit) tablet
aspirin 81 mg tablet,delayed 81 mg PO DAILY Blood Clot 08/29/24
release Prevention/Tx
atorvastatin 80 mg tablet 80 mg PO High Cholesterol 08/29/24
dulaglutide 0.75 mg/0.5 mL 0.75 mg SC SA Diabetes 08/29/24
subcutaneous pen injector
(Trulicity)
levothyroxine 112 mcg tablet 112 mcg PO DAILY@0700 Thyroid 08/29/24
olmesartan 20 1 tab PO DAILY 02/20/25
mg-hydrochlorothiazide 12.5 mg
tablet
sitagliptin phosphate 50 1 tab PO DAILY 02/20/25
mg-metformin 500 mg tablet
(Janumet)
[2025-02-21 12:35] LABS: Glucose - Point of Care 194 mg/dl (70-99)
--- NOTE | 2025-02-21 13:05 | PTOTSP ---
Speech Therapy Evaluation:
Pt with risk factors of dysphagia (i.e. moyamoya disease; hx of CVAs, cervical fusions, and recrudescence of prior CVA). Despite this, oropharyngeal swallow functional at bedside. Evaluation somewhat limited given clear liquid restriction, however
no signs concerning for pharyngeal dysphagia at this time. Pt passed 3oz swallow screen, WBC WNL, pt afebrile, and pt on room air.
Recommend:
1. Thin liquid diet (clears per medical team)
2. Medications as tolerated
3. General aspiration precautions
4. SUCTION PLATE ROLLER HAND to briefly follow to monitor tolerance of diet and assess tolerance of solids when cleared to do so.
[2025-02-21 13:35] LABS: Hematocrit 28.3 % (37.0-47.0); Hemoglobin 10.3 g/dL (12.0-16.0)
[2025-02-21 17:06] LABS: Glucose - Point of Care 135 mg/dl (70-99)
[2025-02-21] MEDS: LIPITOR 80 MG PO (20:22)
[2025-02-21] MEDS: SENOKOT 8.6 MG PO (21:45)
[2025-02-22 03:38] VITALS: BP 115/68
[2025-02-22 04:33] LABS: Hematocrit 25.4 % (37.0-47.0); Hemoglobin 9.4 g/dL (12.0-16.0); Mean Corpuscular Hgb 33.1 pg (27.0-31.0); Mean Corpuscular Volume 89.4 fL (81.0-99.0); Mean Platelet Volume 8.9 fL (7.4-10.4); Platelet Count 206 10^3/uL (130-400); Red Blood Cell Count 2.84 10^6/uL (4.20-5.40); Red Cell Dist. Width 11.1 % (11.5-14.5); White Blood Cell Count 5.4 10^3/uL (4.8-10.8)
[2025-02-22 04:58] LABS: Blood Urea Nitrogen 22 mg/dl (7-17); Calcium 9.8 mg/dl (8.4-10.2); Carbon Dioxide 23 mmol/L (22-30); Chloride 98 mmol/L (98-107); Estimated Creatinine Clearance 36 ml/min; Glucose 95 mg/dl (70-99); Potassium 4.4 mmol/L (3.5-5.1); Sodium 126 mmol/L (135-145); eGFR 48.39
[2025-02-22] MEDS: SYNTHROID 112 MCG PO (05:45)
[2025-02-22] MEDS: TYLENOL 650 MG PO ×2 (05:53→20:06)
[2025-02-22 07:59] LABS: Glucose - Point of Care 106 mg/dl (70-99)
[2025-02-22 08:17] VITALS: BP 145/69
[2025-02-22] MEDS: ASPIR LOW (ENTERIC COATED) 81 MG PO (08:50)
[2025-02-22] MEDS: MIRALAX 17 GRAMS PO (08:50)
[2025-02-22] MEDS: NSS 1000 IV ×2 (08:50→17:42)
[2025-02-22] MEDS: PROTONIX IV 40 MG IV ×2 (08:53→20:05)
[2025-02-22] MEDS: NSS (PRESERVATIVE FREE) 10 ML IV ×2 (08:53→20:05)
[2025-02-22] MEDS: NULYTELY SOLUTION 2 LITERS PO (08:53)
--- NOTE | 2025-02-22 09:19 | CM ---
Addendum entered by Radha Elizondo 02/22/25 14:17:
Patient not in [facility]
Original Note:
CM met with Enma to complete IA.
She lives with her in a 2 story home with 2 entry steps.
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
History of SNF rehab at [facility] about 2 years ago s/p CVA.
Pt has had [facility] in the past and agreeable to same if needed at discharge.
Plan: CM following for discharge planning needs
PCP: Antonio Gomez
Pharmacy: [facility] in [place]
--- NOTE | 2025-02-22 10:37 | W.PN.GI.CBS2 ---
Today's Communication / Plan
-
egd/colon tomorrow
Assessment / Plan
-
Pt is a 69yo with hx moyamoya with prior surgical intervention, CVA with baseline aphasia/facial droop/right arm weakness, HTN, hypercholesterolemia, hypothyroidism, NIDDM, CKD, prior cervical fusion presents with worsening aphasia with stoke alert
called with stable HCT. On admission noted with Na 123, hbg 9.6 with baseline 10-11. Pt also reported diarrhea and abdominal pain and episode of bloody stool and asked to see for further evaluation. Hx colonoscopy in 2009 good prep to TI with
[place] with 4 mm polyp proximal transverse colon, 2 - 3 mm polyp rectum, diverticulosis, hemorrhoids. No prior EGD. Only on ASA no other NSAID or AC use.
-worsening aphasia s/p stroke alert with stable HCT
-hx prior CVA with baseline aphasia/facial droop/right arm weakness
-rectal bleeding
-anemia with slight drop from baseline
-hyponatremia
-leukocytosis
-wt loss
other med problems:
-hx moyamoya with prior surgical intervention
- HTN
-hypercholesterolemia
-hypothyroidism
-NIDDM
-CKD
-prior cervical fusion
PLAN:
clear liquids
extra 2L golytely this morning
miralax prep later today
for egd/colonoscopy tomorrow
Subjective
Subjective
Date of Service: February 22, 2025
Pt without complaints, no bms
Objective
Data Reviewed
Laboratory Data:
Laboratory Results
02/22/25 04:19
02/22/25 04:19
Laboratory Results
PT 14.8 Sec (11.4-14.6) H 02/20/25 21:39
INR 1.12 02/20/25 21:39
APTT 25.3 Sec (23.4-35.0) 02/20/25 21:39
Total Bilirubin 0.6 mg/dl (0.2-1.3) 02/20/25 21:40
AST 22 U/L (14-36) 02/20/25 21:40
ALT 18 U/L (0-35) 02/20/25 21:40
Alkaline Phosphatase 103 U/L (38-126) 02/20/25 21:40
Vital Signs and I&O:
Vital Signs
Temp Pulse Resp BP Pulse Ox
98 F 66 20 145/69 98
02/22/25 08:17 02/22/25 08:17 02/22/25 08:17 02/22/25 08:17 02/22/25 08:17
I&O
02/21/25 02/22/25 02/23/25
06:59 06:59 06:59
Intake Total 2280 / 2280
Balance 2280 / 2280
Physical Exam
Physical Exam
GI: Soft and Non Tender
[2025-02-22 11:18] VITALS: BP 152/77
--- NOTE | 2025-02-22 11:19 | W.PN.HOSP.TC ---
Today's Communication/Plan
-
EGD/colonoscopy in am
Assessment / Plan
Assessment / Plan
Impression:
Patient is 69 years old female with history of hypertension, hyperlipidemia, diabetes, moyamoya disease who presented to the ER with dizziness with transient worsening of baseline Aphasia.�
Patient has history of moyamoya, with previous strokes with baseline aphasia, right sided facial droop presenting with worsening aphasia.
CT head/CTA unremarkable w/ old changes.
Admitting team discussed with neurology who did not recommend TNK, continue aspirin and statin, no plavix due to moyamoya hx.�
Patient also was having diarrhea w/ bright red blood. Seen by GI and recommendation for EGD/colonoscopy Sunday.
Next day patient back to baseline
Seen by neurology, no further workup needed.
Assessment/plan:
Worsening aphasia/dizzy likely vasovagal from abdominal pain/diarrhea vs r/o acute CVA/TIA
History of aphasia and right-sided facial droop from previous stroke
- CT head with no acute findings
- Aspirin statin continued
- No Plavix due to moyamoya history
- PT OT consulted
- Neurology consulted
-Patient back to baseline.
02/22
Seen by neurology, no further workup needed
Acute on chronic blood loss anemia secondary to GI bleed
- Bloody bowel movement in the ER
- IV PPI
-Clear liquid
- GI consulted for EGD/colonoscopy Sunday
Hyponatremia/FRAN on CKD stage I1 likely from HCTZ
- Start normal saline and continue to monitor
. Hold HCTZ
Leukocytosis likely stress reaction
-Resolved
History of diabetes mellitus
Trulicity on hold
Insulin sliding scale
Diabetic diet (when not NPO)
Hemoglobin A1c pending
History of hypertension
Hold hctz and olmesartan due to FRAN and hyponatremia
-monitor blood pressure
Hyperlipemia
-statin
Hypothyroidism
-Continue levothyroxine
CODE STATUS: Full code
DVT prophylaxis: SCDs
Diet: Clear liquid diet, n.p.o. after midnight
Family communication: Discussed with at bedside
Disposition: Colonoscopy/EGD on Sunday
Total time spent on today's encounter was 65 minutes which included time spent in counseling the patient/family regarding diagnosis and treatment plan as listed above, goals of care, and symptom management. Case was discussed with nursing staff,
specialists, and care coordinators/case management. All labs and imaging personally reviewed by me. Remainder the time spent in detailed review of previous records, lab data, imaging, and other medical provider documentation.
Anticipated Discharge: 24 - 48 hours
Subjective/Interval History
-
Date of Service: February 22, 2025
Patient seen and examined at bedside, sitting in a chair, denies any chest pain or shortness of breath, no abdominal pain, no nausea, no vomiting, no diarrhea or constipation.
For EGD/colonoscopy tomorrow.
Objective Data
-
Labs:
Laboratory Results
02/21/25 02/22/25
23:00 04:19
WBC 5.4
Hgb Cancelled 9.4 L
Hct Cancelled 25.4 L
Plt Count 206
Sodium 126 L
Potassium 4.4
Chloride 98
Carbon Dioxide 23
BUN 22 H
Creatinine 1.2 H
Glucose 95
Calcium 9.8
Vital Signs:
Vital Signs
Temp Pulse Resp BP Pulse Ox
98.1 F 76 22 152/77 100
02/22/25 11:18 02/22/25 11:18 02/22/25 11:18 02/22/25 11:18 02/22/25 11:18
I&O
02/21/25 02/22/25 02/23/25
06:59 06:59 06:59
Intake Total 2280 / 2280
Balance 2280 / 2280
Physical Exam
-
General: Well Developed, Well Nourished and No Apparent Distress
HEENT: Normocephalic, Atraumatic, Moist Mucous Membranes, No Ptosis, PERRLA and Nose Appears Normal
Respiratory: Rales and Non Labored Respirations
Cardiac: Regular Rhythm and S1/S2
Breast: Deferred by me
GI: Soft, Nontender, Nondistended and Normal Bowel Sounds
Genito-urinary: No Costovertebral Tender
Musculoskeletal: No Clubbing, No Cyanosis and No Edema
Skin: Warm
Neuro: Awake, Alert and Oriented
Psych: Calm
[2025-02-22 11:40] LABS: Glucose - Point of Care 104 mg/dl (70-99)
[2025-02-22 15:51] VITALS: BP 128/53
[2025-02-22 16:31] LABS: Glucose - Point of Care 96 mg/dl (70-99)
[2025-02-22] MEDS: GAVILAX 238 GM PO (17:40)
[2025-02-22 19:37] VITALS: BP 142/72; BP 144/71; PULSE 85
[2025-02-22] MEDS: LIPITOR 80 MG PO (20:05)
[2025-02-22] MEDS: SENOKOT PO (20:30)
[2025-02-22 21:43] LABS: Glucose - Point of Care 103 mg/dl (70-99)
[2025-02-22 23:34] VITALS: BP 163/69
[2025-02-23 04:00] VITALS: BP 143/79
[2025-02-23] MEDS: SYNTHROID 112 MCG PO (05:06)
[2025-02-23] MEDS: TYLENOL 650 MG PO (05:27)
[2025-02-23 05:57] LABS: Glucose - Point of Care 99 mg/dl (70-99)
[2025-02-23 07:39] VITALS: BP 160/76
[2025-02-23 08:02] LABS: Hematocrit 26.9 % (37.0-47.0); Hemoglobin 9.8 g/dL (12.0-16.0); Mean Corp Hgb Conc. 36.4 g/dL (33.0-37.0); Mean Corpuscular Hgb 32.9 pg (27.0-31.0); Mean Corpuscular Volume 90.3 fL (81.0-99.0); Mean Platelet Volume 9.6 fL (7.4-10.4); Platelet Count 205 10^3/uL (130-400); Red Blood Cell Count 2.98 10^6/uL (4.20-5.40); Red Cell Dist. Width 11.2 % (11.5-14.5); White Blood Cell Count 3.6 10^3/uL (4.8-10.8)
[2025-02-23 08:16] LABS: Blood Urea Nitrogen 13 mg/dl (7-17); Carbon Dioxide 23 mmol/L (22-30); Chloride 105 mmol/L (98-107); Estimated Creatinine Clearance 43 ml/min; Glucose 89 mg/dl (70-99); Potassium 4.4 mmol/L (3.5-5.1); Sodium 133 mmol/L (135-145); eGFR > 60.00
[2025-02-23 10:04] VITALS: BP 107/50
[2025-02-23 10:09] LABS: Glucose - Point of Care 106 mg/dl (70-99)
[2025-02-23 10:15] VITALS: BP 107/90
--- NOTE | 2025-02-23 10:38 | W.PN.UPDATE ---
Update Note
Progress Note Update
EGD/colon done
likely mild resolving colitis,biopsied
advance diet
no further inpatient w/u
will sign off
[2025-02-23] MEDS: ASPIR LOW (ENTERIC COATED) PO ×2 (11:06→11:16)
[2025-02-23] MEDS: MIRALAX PO ×2 (11:06→11:16)
[2025-02-23] MEDS: PROTONIX IV 40 MG IV (11:06)
[2025-02-23] MEDS: NSS (PRESERVATIVE FREE) 10 ML IV (11:07)
[2025-02-23 11:20] LABS: Glucose - Point of Care 94 mg/dl (70-99)
--- NOTE | 2025-02-23 11:27 | CM ---
Addendum entered by Liat Sandra 02/23/25 13:28:
IMM completed and signed form placed on chart. Patient declined VN support. Brother here for discharge transportation
Original Note:
Patient out of room for testing. Patient now in Care port. Pending physician assessment for need at discharge. CM will continue to follow for discharge planning needs.
Plan; home with VN pending physician assessment
[2025-02-23] MEDS: NSS 1000 IV (11:28)
[2025-02-23 11:45] VITALS: BP 161/72
--- NOTE | 2025-02-23 11:52 | W.PN.HOSP.TC ---
Today's Communication/Plan
-
Discharge home today
Assessment / Plan
Assessment / Plan
Impression:
Patient is 69 years old female with history of hypertension, hyperlipidemia, diabetes, moyamoya disease who presented to the ER with dizziness with transient worsening of baseline Aphasia.�
Patient has history of moyamoya, with previous strokes with baseline aphasia, right sided facial droop presenting with worsening aphasia.
CT head/CTA unremarkable w/ old changes.
Admitting team discussed with neurology who did not recommend TNK, continue aspirin and statin, no plavix due to moyamoya hx.�
Patient also was having diarrhea w/ bright red blood. Seen by GI and recommendation for EGD/colonoscopy Sunday.
Next day patient back to baseline
Seen by neurology, no further workup needed.
Status post EGD showed:
The examined esophagus was normal. Several biopsies were obtained in the
middle third of the esophagus with cold forceps for evaluation of
eosinophilic esophagitis.
Mild inflammation characterized by erythema was found in the gastric
body and in the gastric antrum. Biopsies were taken with a cold forceps
for histology.
The examined duodenum was normal. Biopsies for histology were taken with
a cold forceps for evaluation of celiac disease.
Status post colonoscopy showed:
A patchy area of erythematous mucosa was found in the recto-sigmoid
colon and in the descending colon.
A 4 mm polyp was found in the sigmoid colon. The polyp was semi-sessile.
The polyp was removed with a cold snare. Resection and retrieval were
complete.
Non-bleeding internal hemorrhoids were found during retroflexion. The
hemorrhoids were small.
The exam was otherwise without abnormality.
Assessment/plan:
Worsening aphasia/dizzy likely vasovagal from abdominal pain/diarrhea vs r/o acute CVA/TIA
History of aphasia and right-sided facial droop from previous stroke
- CT head with no acute findings
- Aspirin statin continued
- No Plavix due to moyamoya history
- PT OT consulted
- Neurology consulted
-Patient back to baseline.
02/22
Seen by neurology, no further workup needed
Acute on chronic blood loss anemia secondary to GI bleed
- Bloody bowel movement in the ER
- IV PPI
-Clear liquid
- GI consulted for EGD/colonoscopy Sunday
02/23
EGD/colonoscopy done.
EGD shows normal esophagus/stomach/duodenum.
Colonoscopy showed erythematous mucosa, polyp which removed
Hyponatremia/FRAN on CKD stage I1 likely from HCTZ
- Start normal saline and continue to monitor
. Hold HCTZ
Leukocytosis likely stress reaction
-Resolved
History of diabetes mellitus
Trulicity on hold
Insulin sliding scale
Diabetic diet (when not NPO)
Hemoglobin A1c pending
History of hypertension
Hold hctz and olmesartan due to FRAN and hyponatremia
-monitor blood pressure
Hyperlipemia
-statin
Hypothyroidism
-Continue levothyroxine
CODE STATUS: Full code
DVT prophylaxis: SCDs
Diet: Diabetic
Family communication: Discussed with at bedside
Disposition: Discharge home
Total time spent on today's encounter was 65 minutes which included time spent in counseling the patient/family regarding diagnosis and treatment plan as listed above, goals of care, and symptom management. Case was discussed with nursing staff,
specialists, and care coordinators/case management. All labs and imaging personally reviewed by me. Remainder the time spent in detailed review of previous records, lab data, imaging, and other medical provider documentation.
Anticipated Discharge: Today
Subjective/Interval History
-
Date of Service: February 23, 2025
Patient seen and examined at bedside, denies any chest pain or shortness of breath, status post EGD/colonoscopy today.
Objective Data
-
Labs:
Laboratory Results
02/23/25
07:38
WBC 3.6 L
Hgb 9.8 L
Hct 26.9 L
Plt Count 205
Sodium 133 L
Potassium 4.4
Chloride 105
Carbon Dioxide 23
BUN 13
Creatinine 1.0
Glucose 89
Calcium 10.0
Vital Signs:
Vital Signs
Temp Pulse Resp BP Pulse Ox
97.4 F 70 18 161/72 100
02/23/25 11:45 02/23/25 11:45 02/23/25 11:45 02/23/25 11:45 02/23/25 11:45
I&O
02/22/25 02/23/25 02/24/25
06:59 06:59 06:59
Intake Total 2280 / 2280 3460 / 3460
Balance 2280 / 2280 3460 / 3460
Physical Exam
-
General: Well Developed, Well Nourished and No Apparent Distress
HEENT: Normocephalic, Atraumatic, Moist Mucous Membranes, No Ptosis, PERRLA and Nose Appears Normal
Respiratory: Rales and Non Labored Respirations
Cardiac: Regular Rhythm and S1/S2
Breast: Deferred by me
GI: Soft, Nontender, Nondistended and Normal Bowel Sounds
Genito-urinary: No Costovertebral Tender
Musculoskeletal: No Clubbing, No Cyanosis and No Edema
Skin: Warm
Neuro: Awake, Alert and Oriented
Psych: Calm
Data Reviewed
-
Diagnostic Radiology: Image personally visualized and interpreted and Report Reviewed by me
CT Scan: Image personally visualized and interpreted and Report Reviewed by me
Ultrasound: Image personally visualized and interpreted and Report Reviewed by me
MRI: Image personally visualized and interpreted and Report Reviewed by me
Medical Tests (Nuc Med, Echo etc): Image personally visualized and interpreted and Report Reviewed by me
Labs: Labs Reviewed by me
Old Records: Reviewed
--- NOTE | 2025-02-23 12:00 | W.DCSUMMARY ---
Discharge Summary
Discharge Data
Date of Admission: 02/21/25
Date of Discharge: 02/23/25
-
Pending Results: No
Hospital Course
Hospital course
Patient is 69 years old female with history of hypertension, hyperlipidemia, diabetes, moyamoya disease who presented to the ER with dizziness with transient worsening of baseline Aphasia.�
Patient has history of moyamoya, with previous strokes with baseline aphasia, right sided facial droop presenting with worsening aphasia.
CT head/CTA unremarkable w/ old changes.
Admitting team discussed with neurology who did not recommend TNK, continue aspirin and statin, no plavix due to moyamoya hx.�
Patient also was having diarrhea w/ bright red blood. Seen by GI and recommendation for EGD/colonoscopy Sunday.
Next day patient back to baseline
Seen by neurology, no further workup needed.
Status post EGD showed:
The examined esophagus was normal. Several biopsies were obtained in the
middle third of the esophagus with cold forceps for evaluation of
eosinophilic esophagitis.
Mild inflammation characterized by erythema was found in the gastric
body and in the gastric antrum. Biopsies were taken with a cold forceps
for histology.
The examined duodenum was normal. Biopsies for histology were taken with
a cold forceps for evaluation of celiac disease.
Status post colonoscopy showed:
A patchy area of erythematous mucosa was found in the recto-sigmoid
colon and in the descending colon.
A 4 mm polyp was found in the sigmoid colon. The polyp was semi-sessile.
The polyp was removed with a cold snare. Resection and retrieval were
complete.
Non-bleeding internal hemorrhoids were found during retroflexion. The
hemorrhoids were small.
The exam was otherwise without abnormality.
Patient cleared for discharge as per GI.
During hospitalization patient was treated from the following
Worsening aphasia/dizzy likely vasovagal from abdominal pain/diarrhea vs r/o acute CVA/TIA
History of aphasia and right-sided facial droop from previous stroke
- CT head with no acute findings
- Aspirin statin continued
- No Plavix due to moyamoya history
- PT OT consulted
- Neurology consulted
-Patient back to baseline.
02/22
Seen by neurology, no further workup needed
Acute on chronic blood loss anemia secondary to GI bleed
- Bloody bowel movement in the ER
- IV PPI
-Clear liquid
- GI consulted for EGD/colonoscopy Sunday
02/23
EGD/colonoscopy done.
EGD shows normal esophagus/stomach/duodenum.
Colonoscopy showed erythematous mucosa, polyp which removed
Hyponatremia/FRAN on CKD stage I1 likely from HCTZ
- Start normal saline and continue to monitor
. Hold HCTZ
Leukocytosis likely stress reaction
-Resolved
History of diabetes mellitus
Trulicity on hold
Insulin sliding scale
Diabetic diet (when not NPO)
Hemoglobin A1c pending
History of hypertension
Hold hctz and olmesartan due to FRAN and hyponatremia
-monitor blood pressure
Hyperlipemia
-statin
Hypothyroidism
-Continue levothyroxine
CODE STATUS: Full code
DVT prophylaxis: SCDs
Diet: Diabetic
Family communication: Discussed with at bedside
Disposition: Discharge home
Total time spent on today's encounter was 40 minutes which included time spent in counseling the patient/family regarding diagnosis and treatment plan as listed above, goals of care, and symptom management. Case was discussed with nursing staff,
specialists, and care coordinators/case management. All labs and imaging personally reviewed by me. Remainder the time spent in detailed review of previous records, lab data, imaging, and other medical provider documentation.
Anticipated Discharge: Today
Discharge Plan
-
Patient Disposition: Home (Routine Discharge)
Discharge Diagnosis/Procedures: GI bleeding.
Acute blood loss anemia
Diet: Diabetic, Carb Controlled
Activity: As tolerated
Referrals:
Ahmad,Asyia S., MD [Active, Gastroenterology] - in three to four weeks
Antonio Mac MD [Family Provider, [facility]]
Prescriptions:
Continued
cholecalciferol (vitamin D3) 1,000 UNITS tablet
1,000 units PO DAILY
levothyroxine 112 mcg tablet
112 mcg PO DAILY@0700
Trulicity 0.75 mg/0.5 mL pen injector
0.75 mg SC SA
atorvastatin 80 MG tablet
80 mg PO
aspirin 81 MG tablet,delayed release (DR/EC)
81 mg PO DAILY
olmesartan-hydrochlorothiazide 20-12.5 mg Tablet
1 tab PO DAILY
Janumet 50-500 mg Tablet
1 tab PO DAILY
Discharge Orders:
Discharge Patient (As Directed); Ordered 02/23/25
Ordered By: Rene Powers
Discharge Date and Time
Print Language: [id number]
== END 2025-02-23 14:14 | disposition home or self-care (01) | DRG 378 ==
LOC: 3 WEST ACU 23:15
PROVIDERS: Nurse Practitioner Adult Health; Registered Nurse; ADMITTING PHYSICIAN Internal Medicine; ATTENDING PHYSICIAN General Practice; CONSULT PHYSICIAN Internal Medicine; CONSULT PHYSICIAN Psychiatry & Neurology Clinical Neurophysiology; EMERGENCY PHYSICIAN Emergency Medicine; FAMILY PHYSICIAN Family Medicine
PROC: 0DB28ZX Excision of Middle Esophagus, Via Natural or Artificial Opening Endoscopic, Diagnostic (ICD-10-PCS; 2025-02-23)
PROC: 0DB68ZX Excision of Stomach, Via Natural or Artificial Opening Endoscopic, Diagnostic (ICD-10-PCS; 2025-02-23)
PROC: 0DB98ZX Excision of Duodenum, Via Natural or Artificial Opening Endoscopic, Diagnostic (ICD-10-PCS; 2025-02-23)
PROC: 0DBN8ZZ Excision of Sigmoid Colon, Via Natural or Artificial Opening Endoscopic (ICD-10-PCS; 2025-02-23)
PROC: 0DB78ZX Excision of Stomach, Pylorus, Via Natural or Artificial Opening Endoscopic, Diagnostic (ICD-10-PCS; 2025-02-23)
DX: K29.71 Gastritis, unspecified, with bleeding (principal); D62 Acute posthemorrhagic anemia; E87.1 Hypo-osmolality and hyponatremia; I67.5 Moyamoya disease; I69.351 Hemiplegia and hemiparesis following cerebral infarction affecting right dominant side; N17.9 Acute kidney failure, unspecified; R29.810 Facial weakness; I69.320 Aphasia following cerebral infarction; E11.22 Type 2 diabetes mellitus with diabetic chronic kidney disease; K64.8 Other hemorrhoids; K59.09 Other constipation; N18.2 Chronic kidney disease, stage 2 (mild); E78.00 Pure hypercholesterolemia, unspecified; D72.829 Elevated white blood cell count, unspecified; R47.1 Dysarthria and anarthria; G83.21 Monoplegia of upper limb affecting right dominant side; K63.89 Other specified diseases of intestine; D12.5 Benign neoplasm of sigmoid colon; E03.9 Hypothyroidism, unspecified; I12.9 Hypertensive chronic kidney disease with stage 1 through stage 4 chronic kidney disease, or unspecified chronic kidney disease; Z79.82 Long term (current) use of aspirin; Z79.890 Hormone replacement therapy; Z79.84 Long term (current) use of oral hypoglycemic drugs; Z79.85 Long-term (current) use of injectable non-insulin antidiabetic drugs; Z88.6 Allergy status to analgesic agent; Z88.1 Allergy status to other antibiotic agents; Z91.040 Latex allergy status; Z88.0 Allergy status to penicillin; Z91.048 Other nonmedicinal substance allergy status; Z80.0 Family history of malignant neoplasm of digestive organs; Z83.719 Family history of colon polyps, unspecified; Z98.1 Arthrodesis status
CPT/HCPCS: 88305; 70450; 70496; 70498; 80048; 80053; 80061; 81003; 81015; 82607; 82728; 82746; 82962; 83036; 83540; 83550; 83930; 83935; 84300; 84484; 85014; 85018; 85025; 85027; 85610; 85730; 86850; 86900; 86901; 87086; 88342; 92610; 93005; 96361; 96374; 97162; 97165; 99285; Q9967

== ENCOUNTER → 2025-03-31 09:24 | Outpatient (REF) | payer MEDICARE, SELFPAY ==
[2025-03-31 10:46] LABS: Sodium 125 mmol/L (135-145)
== END ==
LOC: REG 09:24
PROVIDERS: ATTENDING PHYSICIAN Physician Assistant
DX: E87.1 Hypo-osmolality and hyponatremia (principal)
CPT/HCPCS: 36415; 84295

== ENCOUNTER 2025-03-31 11:33 | Emergency (ER) | payer MEDICARE, SELFPAY ==
[2025-03-31 11:34] VITALS: BP 194/92
[2025-03-31 12:26] VITALS: BMI 24.8
--- NOTE | 2025-03-31 12:43 | ED.GENMED ---
History of Present Illness
General
Chief Complaint: Abnormal Lab Value
Source: patient and spouse
Exam Limitations: none
Time Seen by Provider: 03/31/25 12:08
Nursing documentation reviewed up to this point in time: agreed with
History of Present Illness
History of Present Illness:
69-year-old female past ministry of diabetes hypothyroidism, hypertension previous stroke presenting to the emergency department today with concerns of outpatient hyponatremia that was 125 today. Does have a history of such has been on
hydrochlorothiazide. Denies any symptoms currently. No chest pain shortness of breath fatigue weakness lightheadedness
Past History
Past History
ED Past Medical History: CVA (right MCA stroke), HTN, IDDM, Hypothyroidism and Other (moyamoya, surgically remediated)
ED Past Surgical History: Other (neurosurgery craniotomy for moyamoya)
Social History
Tobacco: Non-smoker
Alcohol: None
Drug: None
Personal:
Living: with family
Employment: Employed
Family History
Family History: Other (reviewed and noncontributory)
Review of Systems
Review of Systems
Allergies reviewed?: Yes
All Other Systems: ROS reviewed and negative except as documented in HPI and ROS
Phy Exam
Physical Exam
Physical Exam:
GENERAL: Alert , in no apparent distress
EYE: pupils equal and reactive
NECK: Supple, no significant adenopathy.
ENT: o/p clr, mmm.
CARDIAC: Regular rate and rhythm .
LUNGS: Clear breath sounds bilaterally, no acute respiratory distress, no wheezes/rales/rhonchi
ABDOMEN: Soft, without focal tenderness, no r/g, no cvat
NEUROLOGICAL: Alert and oriented, no focal neuro deficits
SKIN: Warm and dry, skin intact.
MUSCULOSKELETAL: No edema, well perfused.
PSYCH: Normal and appropriate interaction.
Course
Orders/Labs/Results
Orders:
Orders
03/31/25 12:37
CBC/With Diff [Complete Blood Count/With Diff] Urgent
CMP [Comprehensive Metabolic Panel] Urgent
Magnesium Urgent
Urinalysis Reflex To Culture Urgent
Date Specimen was Collected: 03/31/25
Time Specimen was Collected: 12:25
Urine Sodium Urgent
Date Specimen was Collected: 03/31/25
Time Specimen was Collected: 12:25
03/31/25 14:35
Tolvaptan [Samsca] 15 mg PO ONCE ONE
03/31/25 15:15
Tolvaptan [Samsca] 15 mg PO ONCE ONE
Abnormal Lab Results
03/31/25
12:37
WBC 4.2 L 10^3/uL
(4.8-10.8)
RBC 3.27 L 10^6/uL
(4.20-5.40)
Hgb 11.0 L g/dL
(12.0-16.0)
Hct 29.4 L %
(37.0-47.0)
MCH 33.6 H pg
(27.0-31.0)
MCHC 37.4 H g/dL
(33.0-37.0)
RDW 11.2 L %
(11.5-14.5)
Absolute Lymphs (auto) 0.9 L 10^3/uL
(1.2-3.4)
Lymphocytes % 20.1 L %
(20.5-51.1)
Monocytes % 10.4 H %
(1.7-9.3)
Sodium 124 L mmol/L
(135-145)
Chloride 93 L mmol/L
(98-107)
BUN 24 H mg/dl
(7-17)
Creatinine 1.1 H mg/dL
(0.6-1.0)
Glucose 126 H mg/dl
(70-99)
03/31/25 12:37
03/31/25 12:37
Vital Signs
Initial and Last Documented VS:
Initial Vital Signs
Temp Pulse Resp BP Pulse Ox
98.0 F 87 16 194/92 100
03/31/25 11:34 03/31/25 11:34 03/31/25 11:34 03/31/25 11:34 03/31/25 11:34
Last Documented Vital Signs
Temp Pulse Resp BP Pulse Ox
98.0 F 87 16 168/70 100
03/31/25 11:34 03/31/25 11:34 03/31/25 11:34 03/31/25 15:11 03/31/25 15:12
MDM/Problems Addressed
MDM/Problems Addressed:
69-year-old female presenting with concerns of hyponatremia as an outpatient. Asymptomatic at this time blood pressure elevated otherwise vital signs are normal. Patient in no distress labs showing hyponatremia of 124 also hypochloremic other labs
unremarkable. Case was discussed with nephrology considering she is asymptomatic and on hydrochlorothiazide plan to likely stop hydrochlorothiazide give sodium supplementation and otherwise have her follow-up very closely as an outpatient. This
was discussed with her and her who are in agreement. Return precautions given.
*Pulse Oximetry
SaO2: 100
Oxygen Mode of Delivery: Room air
Patient hypoxic: no (100)
*Critical Care Note
Total Time (30-74mins, 75-104mins- exclusive of procedures): Not Applicable
ED Attending Note
-
Portions of this chart may have been created with voice recognition software.� Occasional wrong word or��sound alike� substitutions may have occurred due to the inherent limitations of voice recognition software.
Discharge Plan
Departure
Patient Disposition: Home (Routine Discharge)
Date of Disposition: 03/31/25
Time of Disposition: 15:33
Patient with high blood pressure during this ER visit?: No
Condition: Good
Covid-19: Not Applicable
Discharge Problem:
Hyponatremia
Instructions: Hyponatremia
Prescriptions:
New
olmesartan [Benicar] 20 mg tablet
20 mg PO DAILY 14 Days Qty: 14 0RF
No Action
cholecalciferol (vitamin D3) 1,000 UNITS tablet
1,000 units PO DAILY
levothyroxine 112 mcg tablet
112 mcg PO DAILY@0700
Trulicity 0.75 mg/0.5 mL pen injector
0.75 mg SC SA
atorvastatin 80 MG tablet
80 mg PO
aspirin 81 MG tablet,delayed release (DR/EC)
81 mg PO DAILY
olmesartan-hydrochlorothiazide 20-12.5 mg Tablet
1 tab PO DAILY
Janumet 50-500 mg Tablet
1 tab PO DAILY
Referrals:
Chepe Loja DO [Active, Nephrology] - Follow up in 1 week
Cruz Mariscal MD [Family Provider, Family Practice]
Activity Restrictions/Additional Instructions:
You came to the emergency department today with concerns of low sodium. Was 124 here. Case was discussed with nephrology and recommended taking the dose of the sodium supplementation here and to have a fluid restriction as well as discontinue
hydrochlorothiazide at home. Please have close with the primary care doctor and nephrology. Please have labs repeated in 2 days. Return for any worsening, new or concerning symptoms.
Interventions
Interventions:
*Risk Screen - Suicide Last Done: 03/31/25 11:34
*General Assessment Last Done: 03/31/25 12:26
*Neglect/Abuse Screening Last Done: 03/31/25 11:34
*ED- Fall Risk Assessment Last Done: 03/31/25 12:26
*ED COVID-19 Vaccine History Last Done: 03/31/25 12:26
Discharge Date and Time
Print Language: KITTITIAN
[2025-03-31 12:56] LABS: Urine Character Clear (Clear)
[2025-03-31 13:13] LABS: Hematocrit 29.4 % (37.0-47.0); Hemoglobin 11.0 g/dL (12.0-16.0); Mean Corp Hgb Conc. 37.4 g/dL (33.0-37.0); Mean Corpuscular Volume 89.9 fL (81.0-99.0); Nucleated Red Blood Cells % 0 %; Platelet Count 227 10^3/uL (130-400); Red Cell Dist. Width 11.2 % (11.5-14.5)
[2025-03-31 13:40] LABS: ALT (SGPT) 19 U/L (0-35); AST (SGOT) 29 U/L (14-36); Albumin 4.9 g/dl (3.5-5.0); Alkaline Phosphatase 98 U/L (38-126); Blood Urea Nitrogen 24 mg/dl (7-17); Calcium 10.0 mg/dl (8.4-10.2); Carbon Dioxide 23 mmol/L (22-30); Chloride 93 mmol/L (98-107); Estimated Creatinine Clearance 39 ml/min; Glucose 126 mg/dl (70-99); Magnesium 1.8 mg/dl (1.6-2.3); Potassium 5.0 mmol/L (3.5-5.1); Sodium 124 mmol/L (135-145); Total Protein 7.4 g/dl (6.3-8.2); eGFR 53.72
[2025-03-31 15:11] VITALS: BP 168/70
[2025-03-31] MEDS: SAMSCA 15 MG PO (15:15)
== END 2025-03-31 15:45 | disposition home or self-care (01) ==
LOC: EMR 11:33
PROVIDERS: Physician Assistant; EMERGENCY PHYSICIAN Student in an Organized Health Care Education/Training Program; FAMILY PHYSICIAN Family Medicine
DX: E87.1 Hypo-osmolality and hyponatremia (principal); E11.9 Type 2 diabetes mellitus without complications; E03.9 Hypothyroidism, unspecified; I10 Essential (primary) hypertension; Z79.4 Long term (current) use of insulin; Z86.73 Personal history of transient ischemic attack (TIA), and cerebral infarction without residual deficits
CPT/HCPCS: 99283; 80053; 81003; 83735; 84300; 85025

== ENCOUNTER → 2025-04-02 11:53 | Outpatient (REF) | payer MEDICARE, SELFPAY ==
[2025-04-02 12:59] LABS: Sodium 128 mmol/L (135-145)
== END ==
LOC: REG 11:53
PROVIDERS: ATTENDING PHYSICIAN Physician Assistant
DX: E87.1 Hypo-osmolality and hyponatremia (principal)
CPT/HCPCS: 36415; 84295

== ENCOUNTER → 2025-04-09 12:03 | Outpatient (REF) | payer MEDICARE, SELFPAY ==
[2025-04-09 13:29] LABS: Sodium 135 mmol/L (135-145)
== END ==
LOC: REG 12:03
PROVIDERS: ATTENDING PHYSICIAN Physician Assistant
DX: E87.1 Hypo-osmolality and hyponatremia (principal)
CPT/HCPCS: 36415; 84295

== ENCOUNTER → 2025-04-14 11:20 | Outpatient (REF) | payer MEDICARE, SELFPAY ==
[2025-04-14 12:50] LABS: Blood Urea Nitrogen 19 mg/dl (7-17); Calcium 9.7 mg/dl (8.4-10.2); Carbon Dioxide 27 mmol/L (22-30); Chloride 102 mmol/L (98-107); Glucose 131 mg/dl (70-99); Potassium 4.6 mmol/L (3.5-5.1); Sodium 135 mmol/L (135-145); eGFR 53.72
== END ==
LOC: REG 11:20
PROVIDERS: ATTENDING PHYSICIAN Specialist; FAMILY PHYSICIAN Physician Assistant
DX: N18.31 Chronic kidney disease, stage 3a (principal)
CPT/HCPCS: 36415; 80048

== ENCOUNTER → 2025-07-07 12:29 | Outpatient (REF) | payer MEDICARE, SELFPAY | LOC: HWRAD 12:29 | PROVIDERS: ATTENDING PHYSICIAN Physician Assistant | DX: M85.88 Other specified disorders of bone density and structure, other site (principal) | CPT/HCPCS: 77080 ==

== ENCOUNTER → 2025-07-14 06:39 | Outpatient (REF) | payer MEDICARE, SELFPAY | LOC: PAVMRI 06:39 | PROVIDERS: ATTENDING PHYSICIAN Psychiatry & Neurology Neurology; FAMILY PHYSICIAN Physician Assistant | DX: I67.5 Moyamoya disease (principal) | CPT/HCPCS: 70544; 70547 ==

== ENCOUNTER → 2025-08-03 08:12 | Outpatient (REF) | payer MEDICARE, SELFPAY ==
[2025-08-03 10:24] LABS: Blood Urea Nitrogen 21 mg/dl (7-17); Calcium 10.4 mg/dl (8.4-10.2); Carbon Dioxide 29 mmol/L (22-30); Chloride 101 mmol/L (98-107); Glucose 97 mg/dl (70-99); Potassium 5.0 mmol/L (3.5-5.1); Sodium 135 mmol/L (135-145); eGFR 48.09
== END ==
LOC: REG 08:12
PROVIDERS: ATTENDING PHYSICIAN Specialist
DX: N18.31 Chronic kidney disease, stage 3a (principal)
CPT/HCPCS: 36415; 80048

== ENCOUNTER → 2025-08-05 07:27 | Outpatient (REF) | payer MEDICARE, SELFPAY | LOC: WDC 07:27 | PROVIDERS: ATTENDING PHYSICIAN Physician Assistant | DX: Z12.31 Encounter for screening mammogram for malignant neoplasm of breast (principal) | CPT/HCPCS: 77063; 77067 ==